=== PATIENT | female | born 1990 | race Caucasian/White ===

== ENCOUNTER 2016-06-25 15:42 | Emergency (ER) | payer MEDICARE, MEDICAID ==
[2016-06-25] MEDS ORDERED: Sodium Chloride 0.9% 1,000 ML IV ONE (16:05)
[2016-06-25] MEDS ORDERED: SUMAtriptan 6 MG/0.5 ML SDV SUBCUT ONE (16:06)
--- NOTE | 2016-06-25 16:21 | EDM.PDOC ---
ED HPI HEADACHE COMPLAINT - General Chief Complaint: Headache Stated Complaint: MIGRAINE Time Seen by Provider: 06/25/16 15:51 Source: Reports: Patient History Limitations: Reports: No limitations - History of Present Illness INITIAL COMMENTS - FREE TEXT/NARRATIVE: 26 years old w f wit h/o migraine headache came the ed due to severe headache behind both eyes. Pt was seen at [facility] today when she received phenergen, after which she broke out in a rash. Pt received prescriptions as well which she did not cloth picker. Pt feels nauseated and is photophobic as well. Pt had diarrhea as in the past 3-5 days. Poor water intake in the past few days as well. no Dizziness of lightheadedness. As per nurse pt fell onto her head before she was seen ay [facility]. No LOC. Not worst headache. PE: Photophobia, Migraine H/A, dehydrated. Anxiety Labs: CBC, BMP nl. HCG neg Impression: Migraine headache, Anxiety and Dehydration. Tx: NS, Imitrex, Benadryl, Solumedrol ( can take dexametason with benadryl), Xanax. 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: Other (see below) (Imitrex po) - Related Data Allergies/ADRs: Allergies Allergy/AdvReac Type Severity Reaction Status Date / Time methylprednisolone sodium Allergy Mild Anxiety Verified 06/25/16 16:20 succinate [From Solu-Medrol] ketorolac tromethamine Allergy Rash Verified 06/25/16 16:20 [From Toradol] phentermine Allergy Cannot Verified 06/25/16 16:20 Remember promethazine HCl Allergy Rash Verified 06/25/16 16:20 [From Phenergan] Home Meds: Home Meds Gabapentin 600 mg PO DAILY 12/30/12 [History] Gabapentin [Neurontin] 600 mg PO BEDTIME 03/14/13 [History] ALPRAZolam [Xanax] 0.5 mg PO BID PRN 12/27/15 [History] Melatonin 10 mg PO BEDTIME 12/27/15 [History] hydrOXYzine Pamoate [Hydroxyzine Pamoate] 25 mg PO Q4H PRN 12/27/15 [History] Metoclopramide [Reglan] 10 mg PO ASDIRECTED PRN #12 cup 05/14/16 [Rx] Past Medical History - Past Health History Medical/Surgical History: Denies Medical/Surgical History HEENT History: Reports: Impaired vision Respiratory History: Reports: Asthma Psychiatric History: Reports: Anxiety, Depression, Suicide attempt - Infectious Disease History Infectious Disease History: Reports: None - Past Surgical History HEENT Surgical History: Reports: Oral surgery GI Surgical History: Reports: Cholecystectomy Female Surgical History: Reports: Other (see below) Other Female Surgeries/Procedures: OVARIAN CYST REMOVAL. Social & Family History - Family History Cardiac: Reports: High cholesterol, Hypertension, Other (see below) Other Cardiac Family History: HEART DISEASE Respiratory: Reports: COPD Psychiatric: Reports: Anxiety, Depression Endocrine/Metabolic: Reports: Diabetes, type II - Tobacco Use Smoking Status *Q: Never Smoker Second Hand Smoke Exposure: No - Alcohol Use Days Per Week of Alcohol Use: 1 Number of Drinks Per Day: 1 Total Drinks Per Week: 1 - Recreational Drug Use Recreational Drug Use: No ED ROS GENERAL - Review of Systems Review Of Systems: See Below Constitutional: Reports: no symptoms HEENT: Reports: Other (dry mucosal membrane) Respiratory: Reports: no symptoms Cardiovascular: Reports: No symptoms Endocrine: Reports: no symptoms GI/Abdominal: Reports: Diarrhea, Decreased appetite : Reports: no symptoms Musculoskeletal: Reports: no symptoms Skin: Reports: no symptoms Neurological: Reports: no symptoms Psychiatric: Reports: No symptoms Hematologic/Lymphatic: Reports: no symptoms Immunologic: Reports: no symptoms - Physical Exam Exam: See Below Exam Limited By: No limitations General Appearance: alert, WD/WN, mild distress Ears: normal external exam, normal canal, hearing grossly normal, normal TMs Nose: normal inspection, normal mucosa, no blood Throat/Mouth: Other (dry mucosal membrane) Head Exam: atraumatic, normocephalic Neck: normal inspection, supple, non-tender, full range of motion Respiratory/Chest: no respiratory distress, lungs clear, normal breath sounds, no accessory muscle use, chest non-tender Cardiovascular: normal peripheral pulses, regular rate, rhythm, no edema, no gallop, no JVD, no murmur, no rub GI/Abdominal: normal bowel sounds, soft, non tender, no organomegaly, no distention, no abnormal bruit, no mass (Female) Exam: Deferred Rectal (Female) Exam: Deferred Neuro Exam (Abbreviated): alert, oriented, CN II-XII intact, normal cognition, normal gait Back Exam: normal inspection, full range of motion, NT Extremities: normal inspection, normal range of motion, non-tender, no pedal edema, normal capillary refill Psychiatric: normal affect, normal mood Skin Exam: Warm, Dry, Intact, Normal color, No rash Course - Vital Signs Text/Narrative:: 26 years old w f wit h/o migraine headache came the ed due to severe headache behind both eyes. Pt was seen at [facility] today when she received phenergen, after which she broke out in a rash. Pt feels nauseated and is photophobic as well. Pt had diarrhea as well in the past 3-5 days. Poor water intake in the past few days as well. no Dizziness of lightheadedness. As per nurse pt fell onto her head before she was seen ay [facility]. No LOC. PE: Dehydrated, photophia, nauseated Pt stated she can take Dexamethason if she gets Benadryl before Dexamethason Last Recorded V/S: Last Vital Signs Temp 36.6 C 06/25/16 15:50 Pulse 67 06/25/16 15:50 Resp 18 06/25/16 15:50 BP 133/79 06/25/16 15:50 Pulse Ox 100 06/25/16 15:50 - Orders/Labs/Meds Labs: Laboratory Tests 06/25/16 06/25/16 06/25/16 Range/Units 16:15 16:35 16:35 WBC 7.0 (4.5-12.0) X10-3/uL RBC 5.19 (3.23-5.20) x10(6)uL Hgb 14.5 (11.5-15.5) g/dL Hct 44.7 (30.0-51.3) % MCV 86.2 (80-96) fL MCH 28.0 (27.7-33.6) pg MCHC 32.5 (32.2-35.4) g/dL RDW 11.9 (11.5-15.5) % Plt Count 288 (125-369) X10(3)uL MPV 8.4 (7.4-10.4) fL Neut % (Auto) 54.9 (46-82) % Lymph % (Auto) 35.4 (13-37) % [place] % (Auto) 8.3 (4-12) % Eos % (Auto) 1 (1.0-5.0) % Baso % (Auto) 1 (0-2) % Neut # 3.8 (1.6-8.3) # Lymph # 2.5 (0.6-5.0) # [place] # 0.6 (0.0-1.3) # Eos # 0.1 (0.0-0.8) # Baso # 0.0 (0.0-0.2) # Sodium 138 (135-145) mmol/L Potassium 3.8 (3.5-5.3) mmol/L Chloride 105 (100-110) mmol/L Carbon Dioxide 23 (23-29) mmol/L BUN 12 (5-20) mg/dL Creatinine 0.7 (0.6-1.3) mg/dL Est Cr Clr Drug Dosing 134.93 mL/min Estimated GFR (MDRD) > 60 (>60) BUN/Creatinine Ratio 17.1 (9-20) Glucose 91 (80-116) mg/dL Calcium 9.5 (8.6-10.2) mg/dL Urine HCG, Qual Negative (NEGATIVE) Meds: Medications Discontinued Medications Generic Name Dose Route Start Last Admin Trade Name Freq PRN Reason Stop Dose Admin Alprazolam 0.5 mg 06/25/16 19:23 Xanax PO 06/25/16 19:24 ONETIME ONE Dihydroergotamine Mesylate 1 mg 06/25/16 17:47 06/25/16 18:06 Dhe 45 IVPUSH 06/25/16 17:48 Not Given ONETIME ONE Diphenhydramine HCl 25 mg 06/25/16 18:04 06/25/16 18:11 Benadryl IVPUSH 06/25/16 18:05 25 mg ONETIME ONE Administration Sodium Chloride 1,000 mls @ 999 mls/hr 06/25/16 16:05 06/25/16 16:43 Normal Saline IV 06/25/16 17:05 999 mls/hr .BOLUS ONE Administration Dexamethasone 10 mg/ Sodium 52.5 mls @ 100 mls/hr 06/25/16 19:03 06/25/16 19: 17 Chloride IV 06/25/16 19:32 100 mls/hr ONETIME ONE Administration Sumatriptan Succinate 6 mg 06/25/16 16:06 06/25/16 16:47 Imitrex SUBCUT 06/25/16 16:07 6 mg ONETIME ONE Administration Departure - Departure Time of Disposition: 19:34 Disposition: Home, Self-Care 01 Condition: good Clinical Impression: Migraine Qualifiers: Migraine type: with aura Status migrainosus presence: without status migrainosus Intractability: not intractable Qualified Code(s): G43.109 - Migraine with aura, not intractable, without status migrainosus Referrals: Jhonny Johns MD [Primary Care Provider] - Forms: ED Department Discharge Additional Instructions: Please cont your meds as recommended, please f/u come back to the ed if the symptoms get worse acutely
[2016-06-25] MEDS ORDERED: Dihydroergotamine 1 MG/ML SDV IVPUSH ONE (17:47)
[2016-06-25] MEDS ORDERED: diphenhydrAMINE 50 MG/ML SDV IVPUSH ONE (18:04)
[2016-06-25] MEDS ORDERED: Dexamethasone 10 MG in Sodium Chloride 0.9% 50 ML IV ONE (19:03)
[2016-06-25] MEDS ORDERED: ALPRAZolam 0.25 MG Tab PO ONE (19:23)
[2016-06-25 20:24] VITALS: BP 132/79
== END 2016-06-25 20:22 | disposition home or self-care (01) ==
LOC: FB.ED 15:42
DX: G43.109 Migraine with aura, not intractable, without status migrainosus (principal); F41.9 Anxiety disorder, unspecified; F32.9 Major depressive disorder, single episode, unspecified; Z79.899 Other long term (current) drug therapy; Z90.49 Acquired absence of other specified parts of digestive tract; Z98.890 Other specified postprocedural states; Z88.8 Allergy status to other drugs, medicaments and biological substances
CPT/HCPCS: 36415; 80048; 81025; 85025; 96361; 96365; 96372; 99283; 99284; J1100; J1200; J3030; J7040; J7050; 96375

== ENCOUNTER 2016-07-25 18:58 | Inpatient (IN) | payer MEDICARE, MEDICAID ==
[2016-07-25] MEDS ORDERED: Sodium Chloride 0.9% 1,000 ML IV ONE (19:15)
[2016-07-25 20:09] LABS: ACETAMINOPHEN 201 ug/mL (10-30)
[2016-07-25] MEDS ORDERED: Acetylcysteine 20% 200 MG/ML 30 ML SDV IV STA (20:58)
--- NOTE | 2016-07-25 20:58 | EDM.PDOC ---
ED HPI GENERAL MEDICAL PROBLEM - General Stated Complaint: OVERDOSE Time Seen by Provider: 07/25/16 18:58 Source of Information: Reports: Patient, Family History Limitations: Reports: Altered mental status, Intoxication - History of Present Illness INITIAL COMMENTS - FREE TEXT/NARRATIVE: 26 y.o.w. 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 Pt was lethargic, was responding to verbal stimuli and was following commands. BP 153/89 pulse 65. No family was present. Onset: today, sudden Onset Date: 07/25/16 Onset Time: 18:00 Duration: Hour(s):, Getting worse Location: Reports: generalized Frontal Headache Pain Score (Numeric/FACES): 2 - Related Data Allergies Allergy/AdvReac Type Severity Reaction Status Date / Time methylprednisolone sodium Allergy Mild Anxiety Verified 07/25/16 19:47 succinate [From Solu-Medrol] ketorolac tromethamine Allergy Rash Verified 07/25/16 19:47 [From Toradol] phentermine Allergy Cannot Verified 07/25/16 19:47 Remember promethazine HCl Allergy Rash Verified 07/25/16 19:47 [From Phenergan] Home Meds: Home Meds Gabapentin 600 mg PO DAILY 12/30/12 [History] Gabapentin [Neurontin] 1,200 mg PO BEDTIME 03/14/13 [History] ALPRAZolam [Xanax] 0.5 mg PO BID PRN 12/27/15 [History] Melatonin 10 mg PO BEDTIME 12/27/15 [History] hydrOXYzine Pamoate [Hydroxyzine Pamoate] 25 mg PO Q4H PRN 12/27/15 [History] Metoclopramide [Reglan] 10 mg PO ASDIRECTED PRN #12 cup 05/14/16 [Rx] .Dayquil 1 tab PO ASDIRECTED PRN 07/26/16 [History] ALPRAZolam [Alprazolam] 1 mg PO BID 07/26/16 [History] Past Medical History - Past Health History Medical/Surgical History: Denies Medical/Surgical History HEENT History: Reports: Impaired vision Respiratory History: Reports: Asthma Gastrointestinal History: Reports: Cholelithiasis Neurological History: Reports: Migraines Psychiatric History: Reports: Anxiety, Depression, Suicide attempt - Infectious Disease History Infectious Disease History: Reports: None - Past Surgical History HEENT Surgical History: Reports: Oral surgery GI Surgical History: Reports: Cholecystectomy Female Surgical History: Reports: Other (see below) Other Female Surgeries/Procedures: OVARIAN CYST REMOVAL. Social & Family History - Family History Cardiac: Reports: High cholesterol, Hypertension, Other (see below) Other Cardiac Family History: HEART DISEASE Respiratory: Reports: COPD Psychiatric: Reports: Anxiety, Depression Endocrine/Metabolic: Reports: Diabetes, type II - Tobacco Use Smoking Status *Q: Never Smoker Second Hand Smoke Exposure: No - Caffeine Use Caffeine Use: Reports: Tea - Alcohol Use Days Per Week of Alcohol Use: 1 Number of Drinks Per Day: 1 Total Drinks Per Week: 1 - Recreational Drug Use Recreational Drug Use: No ED ROS GENERAL - Review of Systems Review Of Systems: Unable To Obtain ED EXAM, GENERAL - Physical Exam Exam: See Below Exam Limited By: Altered mental status General Appearance: lethargic Eye Exam: bilateral eye: normal inspection Ears: normal external exam, normal canal Ear Exam: bilateral ear: auricle normal Nose: normal inspection, normal mucosa, no blood Throat/Mouth: Normal inspection, Normal lips, Normal teeth, Normal gums, Normal oropharynx, Normal voice Head: atraumatic, normocephalic Neck: normal inspection, supple, non-tender, full range of motion Respiratory/Chest: no respiratory distress, lungs clear, decreased breath sounds Cardiovascular: normal peripheral pulses, regular rate, rhythm, no edema, no gallop GI/Abdominal: normal bowel sounds, soft, non tender, no organomegaly, no distention, no abnormal bruit, no mass (Female) Exam: Deferred Rectal (Female) Exam: Deferred Back Exam: normal inspection, full range of motion Extremities: normal inspection Neurological: inattentive Psychiatric: flat affect Skin Exam: Warm, Dry, Intact, Normal color, No rash EKG INTERPRETATION EKG Date: 07/26/16 Time: 00:20 Rhythm: NSR Rate (beats/min): 65 [place]: normal P-wave: present QRS: normal ST-T: normal QT: normal Comparison: NA - no prior EKG EKG Interpretation Comments: short NC Course - Vital Signs Text/Narrative:: 26 y.o.w. 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 Pt was lethargic, was responding to verbal stimuli and was following commands. BP 153/89 pulse 65. RR 15. No family was present. Pt stated she took the drugs because her SO made her feel bad and she wants to get out "of the way" PE: lethargic 26 y.o.w.f Denied suicidal attempt at one time. BP 105/78 after 1 liter of NS Labs: UDS pos for Benzos and acetaminophen (201), WBC 13k, Na 134 K 3.8 Cr 0.6 BUN 21 Impression: Acetaminophen overdose, Bezos abuse, Dehydration, suicidal ideation Consultation: Poison Control: 1) Acetadote 20% i.v. 150mg/kg over 1 hour 2) Acetadote 20% i.v. 50mg/kg over 4 hours 3) Acetadote 20% i.v. 100mg /kg over 16 hours 4) then check LFTs Tx: First dose of Acetadote was started at about 10.30 pm here in the ed. Plan: Admit pt to ICU Vitals on transfer to the ICU: BP 99/56 puls 78 rr 15 Last Recorded V/S: Last Vital Signs Temp 36.6 C 07/26/16 04:50 Pulse 60 07/26/16 06:45 Resp 13 07/26/16 06:45 BP 117/84 07/26/16 06:45 Pulse Ox 97 07/26/16 06:45 - Orders/Labs/Meds Labs: Laboratory Tests 07/25/16 07/25/16 07/25/16 Range/Units 19:30 19:30 19:30 WBC 13.9 H (4.5-12.0) X10-3/uL RBC 5.54 H (3.23-5.20) x10(6)uL Hgb 16.0 H (11.5-15.5) g/dL Hct 47.9 (30.0-51.3) % MCV 86.5 (80-96) fL MCH 28.8 (27.7-33.6) pg MCHC 33.3 (32.2-35.4) g/dL RDW 12.4 (11.5-15.5) % Plt Count 434 H (125-369) X10(3)uL MPV 7.7 (7.4-10.4) fL Neut % (Auto) 60.8 (46-82) % Lymph % (Auto) 29.8 (13-37) % [place] % (Auto) 8.1 (4-12) % Eos % (Auto) 1 (1.0-5.0) % Baso % (Auto) 0 (0-2) % Neut # (Auto) 8.6 H (1.6-8.3) # Lymph # (Auto) 4.1 (0.6-5.0) # [place] # (Auto) 1.1 (0.0-1.3) # Eos # (Auto) 0.1 (0.0-0.8) # Baso # (Auto) 0.0 (0.0-0.2) # PT 10.4 (8.7-11.1) INR 1.03 (0.89-1.13) Sodium 134 L (135-145) mmol/L Potassium 3.8 (3.5-5.3) mmol/L Chloride 105 (100-110) mmol/L Carbon Dioxide 21 L (23-29) mmol/L BUN 21 H (5-20) mg/dL Creatinine 0.6 (0.6-1.3) mg/dL Est Cr Clr Drug Dosing 152.30 mL/min Estimated GFR (MDRD) > 60 (>60) BUN/Creatinine Ratio 35.0 H (9-20) Glucose 124 H (80-116) mg/dL Calcium 9.1 (8.6-10.2) mg/dL HCG, Quant (2.0 - ) mIU/mL Salicylates < 4.0 L (5.0-25.0) mg/dL Urine Opiates Screen (NEGATIVE) Ur Oxycodone Screen (NEGATIVE) Ur Propoxyphene Screen (NEGATIVE) Acetaminophen 201 H* (10-30) ug/mL Ur Barbituates Screen (NEGATIVE) Ur Tricyclics Screen (NEGATIVE) Ur Phencyclidine Scrn (NEGATIVE) Ur Amphetamine Screen (NEGATIVE) Urine MDMA Screen (NEGATIVE) U Benzodiazepines Scrn (NEGATIVE) U Cocaine Metab Screen (NEGATIVE) U Marijuana (THC) Screen (NEGATIVE) Ethyl Alcohol (<0.01) % 07/25/16 07/25/16 07/25/16 Range/Units 19:30 19:30 19:50 WBC (4.5-12.0) X10-3/uL RBC (3.23-5.20) x10(6)uL Hgb (11.5-15.5) g/dL Hct (30.0-51.3) % MCV (80-96) fL MCH (27.7-33.6) pg MCHC (32.2-35.4) g/dL RDW (11.5-15.5) % Plt Count (125-369) X10(3)uL MPV (7.4-10.4) fL Neut % (Auto) (46-82) % Lymph % (Auto) (13-37) % [place] % (Auto) (4-12) % Eos % (Auto) (1.0-5.0) % Baso % (Auto) (0-2) % Neut # (Auto) (1.6-8.3) # Lymph # (Auto) (0.6-5.0) # [place] # (Auto) (0.0-1.3) # Eos # (Auto) (0.0-0.8) # Baso # (Auto) (0.0-0.2) # PT (8.7-11.1) INR (0.89-1.13) Sodium (135-145) mmol/L Potassium (3.5-5.3) mmol/L Chloride (100-110) mmol/L Carbon Dioxide (23-29) mmol/L BUN (5-20) mg/dL Creatinine (0.6-1.3) mg/dL Est Cr Clr Drug Dosing mL/min Estimated GFR (MDRD) (>60) BUN/Creatinine Ratio (9-20) Glucose (80-116) mg/dL Calcium (8.6-10.2) mg/dL HCG, Quant < 2 L (2.0 - ) mIU/mL Salicylates (5.0-25.0) mg/dL Urine Opiates Screen Negative (NEGATIVE) Ur Oxycodone Screen Negative (NEGATIVE) Ur Propoxyphene Screen Negative (NEGATIVE) Acetaminophen (10-30) ug/mL Ur Barbituates Screen Negative (NEGATIVE) Ur Tricyclics Screen Negative (NEGATIVE) Ur Phencyclidine Scrn Negative (NEGATIVE) Ur Amphetamine Screen Negative (NEGATIVE) Urine MDMA Screen Negative (NEGATIVE) U Benzodiazepines Scrn Positive H (NEGATIVE) U Cocaine Metab Screen Negative (NEGATIVE) U Marijuana (THC) Screen Negative (NEGATIVE) Ethyl Alcohol < 0.01 (<0.01) % Meds: Medications Discontinued Medications Generic Name Dose Route Start Last Admin Trade Name Freq PRN Reason Stop Dose Admin Acetylcysteine 14,000 mg 07/25/16 20:58 07/25/16 22:21 Acetadote 20% IV 07/25/16 20:59 14,000 mg ONETIME STA Administration Sodium Chloride 1,000 mls @ 999 mls/hr 07/25/16 19:15 07/25/16 19:48 Normal Saline IV 07/25/16 20:15 999 mls/hr .BOLUS ONE Administration Sodium Chloride 1,000 mls @ 999 mls/hr 07/25/16 21:00 07/25/16 20:52 Normal Saline IV 999 mls/hr ASDIRECTED BRE Administration Acetylcysteine 4,700 mg/ 523.5 mls @ 130.875 mls/hr 07/25/16 23:00 07/26/16 00:12 Dextrose/Water IV 130.875 mls/hr .CONTINUOUS BRE Administration Sodium Chloride 1,000 mls @ 0 mls/hr 07/25/16 22:15 07/25/16 22:20 Normal Saline IV 07/30/16 02:05 30 mls/hr ASDIRECTED BRE Administration KVO Acetylcysteine 9,400 mg/ 1,000 mls @ 62.5 mls/hr 07/26/16 06:15 Dextrose/Water IV 07/26/16 22:30 ASDIRECTED BRE As Directed Acetylcysteine 4,700 mg/ 500.5 mls @ 62.563 mls/hr 07/26/16 07:00 07/26/16 07 :52 Dextrose/Water IV 07/26/16 22:59 Not Given Q8H BRE Sodium Chloride 10 ml 07/25/16 22:03 Saline Flush FLUSH ASDIRECTED PRN Keep Vein Open Departure - Departure Time of Disposition: 11:22 Disposition: Admitted As Inpatient 65 Condition: fair Clinical Impression: Acetaminophen overdose Qualifiers: Encounter type: initial encounter Injury intent: intentional self-harm Qualified Code(s): T39.1X2A - Poisoning by 4-Aminophenol derivatives, intentional self-harm, initial encounter
[2016-07-25] MEDS ORDERED: Sodium Chloride 0.9% 1,000 ML IV SCH ×2 (21:00→22:15)
[2016-07-25] MEDS ORDERED: Sodium Chloride 0.9% 10 ML Syringe FLUSH PRN (22:03)
[2016-07-25] MEDS ORDERED: WATER IV SCH ×2 (23:00)
[2016-07-25] MEDS ORDERED: ACETYLCYSTEINE IV SCH ×2 (23:00)
[2016-07-25] MEDS ORDERED: Acetylcysteine 20% 200 MG/ML 30 ML SDV IV ONE (23:00)
[2016-07-25] MEDS ORDERED: DEXTROSE 5% IV SCH ×2 (23:00)
[2016-07-26] MEDS ORDERED: Acetylcysteine 20% 200 MG/ML 30 ML SDV IV ONE (05:54)
[2016-07-26] MEDS ORDERED: WATER IV SCH ×2 (06:15)
[2016-07-26] MEDS ORDERED: ACETYLCYSTEINE IV SCH ×2 (06:15)
[2016-07-26] MEDS ORDERED: DEXTROSE 10% IV SCH ×2 (06:15)
[2016-07-26] MEDS: WATER IV SCH ×4 (06:33→07:52)
[2016-07-26] MEDS: ACETYLCYSTEINE IV SCH ×4 (06:33→07:52)
[2016-07-26] MEDS: DEXTROSE 5% IV SCH ×4 (06:33→07:52)
[2016-07-26 07:22] VITALS: BP 117/84
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
--- NOTE | 2016-07-26 09:48 | PCM.SN ---
- Free Text/Narrative Note: Patient woke up and took a variety. Refuses IV or by mouth acetylcysteine. Discussed the possible repercussions with hepatic failure. Patient states she does not trusting [facility] because she is at things or rales there that they said were in her head. And wants to be transferred to [place]. Discussed care with Dr. Gibson the hospitalist. He accepted transfer to the ER for initial evaluation and then I would take over.
--- NOTE | 2016-07-26 09:52 | PCM.DCSUM1 ---
Discharge Summary - Hospital Course Free Text/Narrative:: Hospital course-patient is very groggy and received the first part of the acetylcysteine per protocol IV. In the a.m. the patient woke up and took over IV. She refused treatment both oral and by mouth acetyl cystine. She states she doesn't care and does not want any treatment. She later stated that she would receive treatment and [place] she requested to be transferred. Her initial Tylenol level is 201. LFTs were not checked on admission. I discussed care of the hospital settlements going on. Because is no LFTs were ABGs he was patient evaluated in the ER. He felt imperative this patient be transferred to make sure she doesn't go into liver failure. Patient will be transferred by ambulance because of OD, possible suicidal ideation, refusing treatment is necessary for preserving her liver. Brief History: This is a 26-year-old female patient with history of multiple overdoses. She was seen in ER last night after taking 16-17 Xanax 1 mg, 45 600 mg gabapentin, and 24 DayQuil. Her son that the level is high and poison control was called and she was admitted put on IV acetylcysteine protocol. This morning the patient does talk but answers questions slowly and is a bit uncooperative. She states she'll some money, but with a boyfriend and therefore took the pill so she didn't have to feel anything. She denies being suicidal. She does feel depressed, anxious, poor concentration, poor memory and sleeping a lot. This recently. She did have a psychiatrist at [facility] to receive a retired purchasing the psychologist Alec. She states she feels dizzy and some blurred vision currently. - Discharge Data Discharge Date: 07/26/16 Discharge Disposition: DC/Tfer to Acute Hospital 02 Condition: Fair - Discharge Diagnosis/Problem(s) (1) Gabapentin overdose SNOMED Code(s): 261529075 ICD Code: T42.6X1A - POISONING BY OTH ANTIEPLPTC AND SED-HYPNTC DRUGS, ACC, INIT Status: Acute Current Visit: Yes (2) Overdose of benzodiazepine SNOMED Code(s): 379840402 ICD Code: T42.4X1A - POISONING BY BENZODIAZEPINES, ACCIDENTAL, INIT Status : Acute Current Visit: Yes (3) Borderline personality disorder in adult SNOMED Code(s): 11823514 ICD Code: F60.3 - BORDERLINE PERSONALITY DISORDER Status: Acute Current Visit: No (4) Depression SNOMED Code(s): 74492808 ICD Code: F32.9 - MAJOR DEPRESSIVE DISORDER, SINGLE EPISODE, UNSPECIFIED Status: Acute Current Visit: No Qualifiers: Depression Type: major depressive disorder Major depression recurrence: recurrent Active/Remission status: currently active Major depression episode severity: moderate Qualified Code(s): F33.1 - Major depressive disorder, recurrent, moderate (5) Overdose by acetaminophen SNOMED Code(s): 340175113 ICD Code: T39.1X1A - POISONING BY 4-AMINOPHENOL DERIVATIVES, ACCIDENTAL, INIT Status: Acute Current Visit: No Qualifiers: Encounter type: initial encounter Injury intent: intentional self-harm Qualified Code(s): T39.1X2A - Poisoning by 4-Aminophenol derivatives, intentional self-harm, initial encounter (6) Anxiety SNOMED Code(s): 38975707 ICD Code: F41.9 - ANXIETY DISORDER, UNSPECIFIED Status: Chronic Priority : Medium Current Visit: No (7) Overdose of common cold drug SNOMED Code(s): 1280519 ICD Code: T48.5X1A - POISONING BY OTH [id number] DRUGS, ACCIDENTAL, INIT Status: Resolved Priority: Medium Current Visit: No Qualifiers: Encounter type: initial encounter Injury intent: intentional self-harm Qualified Code(s): T48.5X2A - Poisoning by other [id number] drugs, intentional self-harm, initial encounter - Patient Instructions Diet: NPO Activity: As Tolerated Driving: Do Not Drive Showering/Bathing: May Shower Other/Special Instructions: 1. Transferred to [facility] per [facility] ambulance. 2. Hold all medications. - Discharge Plan Home Medications: Home Meds Gabapentin 600 mg PO DAILY 12/30/12 [History] Gabapentin [Neurontin] 1,200 mg PO BEDTIME 03/14/13 [History] ALPRAZolam [Xanax] 0.5 mg PO BID PRN 12/27/15 [History] Melatonin 10 mg PO BEDTIME 12/27/15 [History] hydrOXYzine Pamoate [Hydroxyzine Pamoate] 25 mg PO Q4H PRN 12/27/15 [History] Metoclopramide [Reglan] 10 mg PO ASDIRECTED PRN #12 cup 05/14/16 [Rx] .Dayquil 1 tab PO ASDIRECTED PRN 07/26/16 [History] ALPRAZolam [Alprazolam] 1 mg PO BID 07/26/16 [History] - Discharge Summary/Plan Comment DC Time >30 min.: No - Patient Data Vitals - Most Recent: Last Vital Signs Temp 97.8 F 07/26/16 04:50 Pulse 60 07/26/16 06:45 Resp 13 07/26/16 06:45 BP 117/84 07/26/16 06:45 Pulse Ox 97 07/26/16 06:45 Weight - Most Recent: 204 lb 3.2 oz I&O - Last 24 hours: Intake & Output 07/25/16 07/26/16 07/26/16 22:59 06:59 14:59 Intake Total 2553 Output Total 0 800 Balance 2553 -800 Lab Results - Last 24 hrs: Laboratory Results - last 24 hr 07/26/16 07/26/16 Range/Units 08:40 08:40 Sodium 137 (135-145) mmol/L Potassium 4.1 (3.5-5.3) mmol/L Chloride 107 (100-110) mmol/L Carbon Dioxide 23 (23-29) mmol/L BUN 14 (5-20) mg/dL Creatinine 0.7 (0.6-1.3) mg/dL Est Cr Clr Drug Dosing 130.54 mL/min Estimated GFR (MDRD) > 60 (>60) BUN/Creatinine Ratio 20.0 (9-20) Glucose 92 (80-116) mg/dL Calcium 8.6 (8.6-10.2) mg/dL Total Bilirubin 0.7 (0.1-1.3) mg/dL AST 23 (5-27) IU/L ALT 26 D (14-26) IU/L Alkaline Phosphatase 70 (56-112) IU/L Total Protein 6.9 (6.0-8.0) g/dL Albumin 3.7 (3.5-5.2) g/dL Globulin 3.2 g/dL Albumin/Globulin Ratio 1.2 Acetaminophen 16 (10-30) ug/mL Med Orders - Current: Current Medications Sodium Chloride (Normal Saline) 1,000 mls @ 999 mls/hr IV ASDIRECTED BRE Last Admin: 07/25/16 20:52 Dose: 999 mls/hr Acetylcysteine 4,700 mg/ (Dextrose/Water) 523.5 mls @ 130.875 mls/hr IV .CONTINUOUS BRE Last Admin: 07/26/16 00:12 Dose: 130.875 mls/hr Sodium Chloride (Normal Saline) 1,000 mls @ 0 mls/hr IV ASDIRECTED BRE PRN Reason: KVO Stop: 07/30/16 02:05 Last Admin: 07/25/16 22:20 Dose: 30 mls/hr Acetylcysteine 4,700 mg/ (Dextrose/Water) 500.5 mls @ 62.563 mls/hr IV Q8H BRE Stop: 07/26/16 22:59 Last Admin: 07/26/16 07:52 Dose: Not Given Sodium Chloride (Saline Flush) 10 ml FLUSH ASDIRECTED PRN PRN Reason: Keep Vein Open Discontinued Medications Acetylcysteine (Acetadote 20%) 14,000 mg IV ONETIME STA Stop: 07/25/16 20:59 Last Admin: 07/25/16 22:21 Dose: 14,000 mg Sodium Chloride (Normal Saline) 1,000 mls @ 999 mls/hr IV .BOLUS ONE Stop: 07/25/16 20:15 Last Admin: 07/25/16 19:48 Dose: 999 mls/hr Acetylcysteine 9,400 mg/ (Dextrose/Water) 1,000 mls @ 62.5 mls/hr IV ASDIRECTED BRE PRN Reason: As Directed Stop: 07/26/16 22:30 *Q Meaningful Use (DIS) - VTE *Q VTE Criteria *Q: - Stroke *Q Stroke Criteria *Q: - AMI *Q AMI Criteria *Q:
== END 2016-07-26 10:08 | DRG 918 ==
LOC: FB.ED 18:58 → FB.ICU 22:04
PROVIDERS: ADMIT Family Medicine; ATTEND Family Medicine
DX: T42.4X2A Poisoning by benzodiazepines, intentional self-harm, initial encounter (principal); R45.851 Suicidal ideations; F33.1 Major depressive disorder, recurrent, moderate; T42.6X2A Poisoning by other antiepileptic and sedative-hypnotic drugs, intentional self-harm, initial encounter; Y92.9 Unspecified place or not applicable; T48.5X2A Poisoning by other anti-common-cold drugs, intentional self-harm, initial encounter; T39.1X2A Poisoning by 4-Aminophenol derivatives, intentional self-harm, initial encounter; E86.0 Dehydration; F19.10 Other psychoactive substance abuse, uncomplicated; F60.3 Borderline personality disorder; F41.9 Anxiety disorder, unspecified; R41.82 Altered mental status, unspecified; Z91.5 Personal history of self-harm; H54.7 Unspecified visual loss; Z88.8 Allergy status to other drugs, medicaments and biological substances; Z53.29 Procedure and treatment not carried out because of patient's decision for other reasons
CPT/HCPCS: 36415; 80048; 80305; 84702; 85025; 85610; 96361; 99284; G0480 ×3; J7040 ×2; 80053; 93005; 96360; 96374; 99285

== ENCOUNTER 2016-12-12 12:08 | Emergency (ER) | payer MEDICARE, MEDICAID ==
[2016-12-12] MEDS ORDERED: Sodium Chloride 0.9% 1,000 ML IV SCH (12:45)
[2016-12-12] MEDS ORDERED: Metoclopramide 10 MG/2 ML SDV IVPUSH ONE (12:46)
[2016-12-12] MEDS ORDERED: diphenhydrAMINE 50 MG/ML SDV IVPUSH ONE (12:46)
[2016-12-12] MEDS ORDERED: SUMAtriptan 6 MG/0.5 ML SDV SUBCUT ONE (14:32)
[2016-12-12 17:18] VITALS: BP 130/73
--- NOTE | 2016-12-13 06:32 | ER ---
DATE SEEN: 12/12/2016 HISTORY OF PRESENT ILLNESS: Miya is a 26-year-old who is known to have history of suicidal ideation with suicide attempts on multiple occasions in the past. She overdosed on antidepressants, falls, lund, scalp injuries, lacerations, overdose by acetaminophen and other cold drugs. Also, borderline personality, depression, seizures, syncope. She presents this evening with onset of migraines. It had been several hours of migraines. It is 8/10. She denies compromise in vision. She has a mild photosensitivity and phono sensitivity. Denies paresis, weakness, numbness, scotoma, teichopsia, aura, or fortification syndrome vision. She denies loss of consciousness, chest pain, irregular heartbeat, neck pain, jaw pain, tooth pain, sinus discomfort, recent infection, fever, neck stiffness, abdominal discomfort, gastrointestinal symptoms, nausea, vomiting, diarrhea, constipation, blood in the stool, black tarry stool. She is not menstruating currently. No frequency, urgency, or dysuria, and no muscle weakness or muscle aches or joint aches. CURRENT ALLERGIES: Extensive. Methylprednisolone anxiety, Toradol rash, phentermine cannot remember, promethazine rash. MEDICATIONS: 1. Metformin 500 mg b.i.d. 2. Seroquel 200 mg daily. 3. Prozac 20 mg daily. 4. Hydroxyzine p.r.n. REVIEW OF SYSTEMS: Negative. HEENT, denies compromise in vision, difficulty swallowing, shortness of breath, chest pain, irregular heartbeat, abdominal discomfort, nausea, vomiting, and denies pelvic pain. Denies pain in muscles, joints, aches. No history of fibromyalgia symptoms. PHYSICAL EXAMINATION: VITAL SIGNS: Blood pressure 133/79, heart rate 78, respirations 16, oxygen saturation 100%, temperature is 36.6 degrees centigrade. GENERAL: The patient is quiet, soft spoken, slightly overweight. HEENT: PERRLA intact. Eyegrounds normal. No nystagmus. EOMs normal. Hearing is good. TMs normal appearance. NECK: Supple. No thyromegaly. No masses in neck. No cervical adenopathy. No bruits. LUNGS: Clear to auscultation without rales, rhonchi, or wheezes. HEART: S1 and S2. No irregularity of rhythm. No murmur. ABDOMEN: Soft. No guarding. No abdominal discomfort. NEURO: Deep tendon reflexes upper and lower extremities hypoactive, but present. Cranial nerves II through XII intact. Oriented x3. Gait intact. Romberg negative. No past pointing. No pronator drift. No tremor. Muscle strength is good. Joint is negative. ASSESSMENT: Migraine. PLAN: 1000 mL normal saline flush plus Reglan flush. She is allergic to Toradol and Decadron. Consequently, did not give those. However, once this was completed, her headache went down to a 6. Thus, I felt I was not going to use narcotics because of narcotic breakthrough and consequently the patient was given a shot of Imitrex 6 mg subcu and dismissed. She used to have headaches. Because of her previous history of borderline personality and also suicidal ideation, I chose not to provide her with any narcotics or other headache medications, she has a migraine pill. Further followup of her migraines by a doctor in a week, earlier if worse. TIME SEEN: The patient was seen at 1300. /[id number] TRENA/TITO
== END 2016-12-12 15:00 | disposition home or self-care (01) ==
LOC: FB.ED 12:08
DX: G43.909 Migraine, unspecified, not intractable, without status migrainosus (principal); Z79.84 Long term (current) use of oral hypoglycemic drugs; Z79.899 Other long term (current) drug therapy
CPT/HCPCS: 80305; 96361; 96372; 96374; 96375; 99283; J1200; J2360; J2765; J3030; J7040

== ENCOUNTER 2016-12-18 17:29 | Emergency (ER) | payer MEDICARE, MEDICAID ==
[2016-12-18] MEDS ORDERED: Ondansetron 8 MG Tab.DIS PO ONE (18:06)
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
[2016-12-18] MEDS ORDERED: Sodium Chloride 0.9% 1,000 ML IV ONE ×2 (18:20→20:07)
[2016-12-18 19:34] LABS: ACETAMINOPHEN < 10 ug/mL (10-30)
[2016-12-18] MEDS ORDERED: Magnesium Sulfate/Water 2 GM in Premix Bag 1 BAG IV ONE (22:02)
[2016-12-19 00:06] VITALS: BP 122/63
== END 2016-12-19 00:17 | disposition home or self-care (01) ==
LOC: FB.ED 17:29
DX: T43.591A Poisoning by other antipsychotics and neuroleptics, accidental (unintentional), initial encounter (principal); F41.9 Anxiety disorder, unspecified; E86.0 Dehydration; G43.909 Migraine, unspecified, not intractable, without status migrainosus; J45.909 Unspecified asthma, uncomplicated; F32.9 Major depressive disorder, single episode, unspecified; Z88.8 Allergy status to other drugs, medicaments and biological substances; Z88.6 Allergy status to analgesic agent; Z79.899 Other long term (current) drug therapy; Z79.51 Long term (current) use of inhaled steroids
CPT/HCPCS: 36415; 80048; 80076; 80305; 81025; 82150; 83735; 84443; 85025; 93005; 96361; 96365; 99283; A9270; G0480; J3475; J7040; 99284

== ENCOUNTER 2017-04-17 20:40 | Emergency (ER) | payer MEDICARE, MEDICAID ==
[2017-04-17 21:24] VITALS: BP 130/84
[2017-04-17] MEDS ORDERED: traMADol 50 MG Tab PO ONE (21:27)
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
== END 2017-04-17 21:45 | disposition home or self-care (01) ==
LOC: FB.ED 20:40
DX: M72.2 Plantar fascial fibromatosis (principal); Z88.8 Allergy status to other drugs, medicaments and biological substances; Z88.6 Allergy status to analgesic agent; F32.9 Major depressive disorder, single episode, unspecified; F41.9 Anxiety disorder, unspecified
CPT/HCPCS: 99282; A9270

== ENCOUNTER 2017-06-12 13:08 | Emergency (ER) | payer MEDICAID, MEDICARE ==
[2017-06-12 15:16] LABS: ACETAMINOPHEN < 2 ug/mL (10-30)
[2017-06-12] MEDS ORDERED: Ketorolac 60 MG/2 ML SDV IM ONE (15:34)
[2017-06-12] MEDS ORDERED: Ondansetron 4 MG Tab.DIS PO ONE (16:06)
[2017-06-12] MEDS ORDERED: Acetaminophen 500 MG Tab PO ONE (17:33)
[2017-06-12] MEDS ORDERED: Metoclopramide 10 MG Tab PO ONE (17:36)
[2017-06-12] MEDS ORDERED: diphenhydrAMINE 50 MG Cap PO ONE (17:37)
[2017-06-12 18:36] VITALS: BP 133/80
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
== END 2017-06-12 18:28 ==
LOC: FB.ED 13:08
DX: F32.9 Major depressive disorder, single episode, unspecified (principal); F34.1 Dysthymic disorder; R45.851 Suicidal ideations; Z88.8 Allergy status to other drugs, medicaments and biological substances; Z79.899 Other long term (current) drug therapy; Z88.1 Allergy status to other antibiotic agents
CPT/HCPCS: 36415; 80053; 80305; 81025; 84443; 85025; 93005; 96372; 99285; A9270; G0480; J1885

== ENCOUNTER 2018-05-17 14:05 | Emergency (ER) | payer BC ==
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
[2018-05-17 14:47] LABS: ACETAMINOPHEN 37 ug/mL (10-30)
[2018-05-17] MEDS ORDERED: Sodium Chloride 0.9% 1,000 ML IV ONE (15:48)
[2018-05-17] MEDS ORDERED: Ondansetron 4 MG/2 ML SDV IVPUSH ONE (16:06)
[2018-05-17 16:48] VITALS: BP 117/76
[2018-05-17] MEDS ORDERED: Metoclopramide 10 MG/2 ML SDV IVPUSH ONE (18:54)
[2018-05-17] MEDS ORDERED: Ketorolac 30 MG/ML SDV IVPUSH ONE (20:05)
== END 2018-05-17 23:59 | disposition home or self-care (01) ==
LOC: FB.ED 14:05
DX: F33.1 Major depressive disorder, recurrent, moderate (principal); Z88.8 Allergy status to other drugs, medicaments and biological substances; Z79.899 Other long term (current) drug therapy
CPT/HCPCS: 36415; 80048; 80076; 80305-QW; 81001; 81025; 84443; 85025; 93005; 96361; 96374; 96375; 99285; G0480; J1885; J2405; J2765; J7030

== ENCOUNTER 2018-06-29 20:36 | Emergency (ER) | payer BC, MEDICARE ==
[2018-06-29] MEDS ORDERED: Ketorolac 60 MG/2 ML SDV IM ONE (20:44)
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
[2018-06-29] MEDS ORDERED: Acetaminophen/HYDROcodone 325-5 MG Tab PO STA (21:16)
[2018-06-29 21:52] VITALS: BP 132/79
== END 2018-06-29 21:29 | disposition home or self-care (01) ==
LOC: FB.ED 20:36
DX: M54.5 Low back pain (principal); E66.9 Obesity, unspecified; Z98.890 Other specified postprocedural states; Z90.49 Acquired absence of other specified parts of digestive tract; Z88.8 Allergy status to other drugs, medicaments and biological substances
CPT/HCPCS: 81001; 96372; 99283; A9270-GY; J1885

== ENCOUNTER 2018-09-13 20:30 | Emergency (ER) | payer OTHER, MEDICARE ==
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
[2018-09-13 21:05] VITALS: BP 128/92
== END 2018-09-13 21:55 | disposition home or self-care (01) ==
LOC: FB.ED 20:30
DX: S83.91XA Sprain of unspecified site of right knee, initial encounter (principal); Z88.8 Allergy status to other drugs, medicaments and biological substances; W18.40XA Slipping, tripping and stumbling without falling, unspecified, initial encounter
CPT/HCPCS: 73610-RT; 99282; 99283-25

== ENCOUNTER 2018-11-09 18:27 | Emergency (ER) | payer MEDICARE ==
[2018-11-09] MEDS ORDERED: Ondansetron 4 MG/2 ML SDV IVPUSH ONE (18:56)
[2018-11-09] MEDS ORDERED: Sodium Chloride 0.9% 10 ML Syringe FLUSH PRN (18:56)
[2018-11-09] MEDS ORDERED: Ketorolac 30 MG/ML SDV IVPUSH ONE ×2 (18:56→20:23)
[2018-11-09 18:59] VITALS: BP 148/86; PULSE 91
[2018-11-09] MEDS ORDERED: Sodium Chloride 0.9% 1,000 ML IV SCH (19:00)
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
== END 2018-11-09 21:11 | disposition home or self-care (01) ==
LOC: FB.ED 18:27
DX: R10.30 Lower abdominal pain, unspecified (principal); F41.9 Anxiety disorder, unspecified; F32.9 Major depressive disorder, single episode, unspecified; Z88.8 Allergy status to other drugs, medicaments and biological substances; Z79.899 Other long term (current) drug therapy; Z87.442 Personal history of urinary calculi
CPT/HCPCS: 36415; 51701; 80053; 81001; 85025; 85651; 86140; 96361; 96374; 96375; 96376; 99284; J1885; J2405; J7030

== ENCOUNTER 2018-12-05 21:31 | Emergency (ER) | payer BC, MEDICARE ==
[2018-12-05 21:39] VITALS: BP 137/80; PULSE 98
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
[2018-12-05] MEDS ORDERED: Ketorolac 60 MG/2 ML SDV IM ONE (21:49)
== END 2018-12-05 22:05 | disposition home or self-care (01) ==
LOC: FB.ED 21:31
DX: M54.6 Pain in thoracic spine (principal); F41.9 Anxiety disorder, unspecified; E66.9 Obesity, unspecified; Z68.33 Body mass index [BMI] 33.0-33.9, adult; Z90.49 Acquired absence of other specified parts of digestive tract; Z90.6 Acquired absence of other parts of urinary tract; Z79.899 Other long term (current) drug therapy; Z88.8 Allergy status to other drugs, medicaments and biological substances
CPT/HCPCS: 96372; 99282; J1885; J2360

== ENCOUNTER 2018-12-17 15:43 | Emergency (ER) | payer BC, MEDICARE ==
[2018-12-17] MEDS ORDERED: Ketorolac 30 MG/ML SDV IVPUSH ONE (16:14)
[2018-12-17] MEDS ORDERED: Sodium Chloride 0.9% 10 ML Syringe FLUSH PRN (16:14)
[2018-12-17] MEDS ORDERED: diphenhydrAMINE 50 MG/ML SDV IVPUSH ONE ×2 (16:14→19:19)
[2018-12-17] MEDS ORDERED: Ondansetron 4 MG/2 ML SDV IVPUSH ONE (16:15)
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
[2018-12-17] MEDS ORDERED: Sodium Chloride 0.9% 1,000 ML IV ONE (17:39)
[2018-12-17] MEDS ORDERED: Prochlorperazine 10 MG/2 ML SDV IVPUSH ONE (18:13)
[2018-12-17] MEDS ORDERED: HYDROmorphone 2 MG/ML SDV IVPUSH ONE (18:52)
[2018-12-17 21:15] VITALS: BP 138/91
== END 2018-12-17 19:32 | disposition home or self-care (01) ==
LOC: FB.ED 15:43
DX: G43.909 Migraine, unspecified, not intractable, without status migrainosus (principal); K21.9 Gastro-esophageal reflux disease without esophagitis; M19.90 Unspecified osteoarthritis, unspecified site; E66.9 Obesity, unspecified; Z98.890 Other specified postprocedural states; Z90.49 Acquired absence of other specified parts of digestive tract; Z88.8 Allergy status to other drugs, medicaments and biological substances
CPT/HCPCS: 96361; 96374; 96375; 96376; 99283; J0780; J1170; J1200; J1885; J2405; J7030

== ENCOUNTER 2018-12-26 00:12 | Emergency (ER) | payer BC, MEDICARE ==
[2018-12-26] MEDS ORDERED: diphenhydrAMINE 50 MG/ML SDV IM ONE (02:06)
[2018-12-26] MEDS ORDERED: Ketorolac 30 MG/ML SDV IM ONE (02:06)
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
[2018-12-26] MEDS ORDERED: Prochlorperazine 10 MG/2 ML SDV IM ONE (02:07)
[2018-12-26] MEDS ORDERED: LORazepam 2 MG/ML SDV IM ONE (03:23)
[2018-12-26] MEDS ORDERED: Haloperidol Lactate 5 MG/ML SDV IM ONE (03:23)
[2018-12-26 04:54] VITALS: BP 127/65
== END 2018-12-26 04:35 | disposition home or self-care (01) ==
LOC: FB.ED 00:12
DX: G43.109 Migraine with aura, not intractable, without status migrainosus (principal); F41.0 Panic disorder [episodic paroxysmal anxiety]; F32.9 Major depressive disorder, single episode, unspecified; E66.9 Obesity, unspecified; Z68.32 Body mass index [BMI] 32.0-32.9, adult; Z88.8 Allergy status to other drugs, medicaments and biological substances; Z79.899 Other long term (current) drug therapy
CPT/HCPCS: 70450; 96372; 99284; J0780; J1200; J1630; J1885; J2060

== ENCOUNTER 2018-12-29 07:16 | Day surgery (SDC) | payer BC, MEDICARE ==
[2018-12-29] MEDS ORDERED: Midazolam 1 MG/ML 2 ML SDV IV ONE (07:17)
[2018-12-29] MEDS ORDERED: Propofol 200 MG/20 ML SDV IV ONE (07:17)
[2018-12-29] MEDS ORDERED: Lactated Ringers 1,000 ML IV SCH (07:30)
[2018-12-29] MEDS ORDERED: Sodium Chloride 0.9% 10 ML Syringe FLUSH PRN (07:30)
--- NOTE | 2018-12-29 09:05 | PCM.OPNOTE ---
- General Post-Op/Procedure Note Date of Surgery/Procedure: 12/29/18 Operative Procedure(s): c scope Findings: normal exam Pre Op Diagnosis: rlq abd pain Post-Op Diagnosis: nl colon exam Anesthesia Technique: MAC Primary Surgeon: Kenji Ramos Anesthesia Provider: Darcy Pop Pathology: none Complications: None Condition: Good Free Text/Narrative:: see dictation
[2018-12-29 10:17] VITALS: BP 119/75
--- NOTE | 2018-12-29 14:45 | OR ---
DATE OF OPERATION: 12/29/2018 SURGEON: Kenji Ramos MD PROCEDURE PERFORMED: Colonoscopy. PREOPERATIVE DIAGNOSIS: Right lower quadrant abdominal pain. POSTOPERATIVE DIAGNOSIS: Normal colonoscopic exam. INDICATIONS FOR PROCEDURE: This is a 28-year-old white female, who is referred with a history of some vague abdominal discomfort in the right lower quadrant. She was offered and accepted a colonoscopy. DESCRIPTION OF OPERATION: After an excellent IV sedation was administered, digital rectal exam was performed. Flexible colonoscope was inserted and advanced to the cecum. Attempts to intubate the ileocecal valve were not successful. However, the following findings were noted: Ascending colon was unremarkable. Transverse colon was unremarkable. Descending colon was unremarkable. Sigmoid and rectum, unremarkable. Digital rectal exam was unremarkable as well. The patient tolerated the procedure well. At this point, I really do not have a good GI explanation for the abdominal pain, and I recommend that she follow up with her primary care provider for further workup. /[id number] ELENO/TITO
== END 2018-12-29 10:11 | disposition home or self-care (01) ==
LOC: FB.SDS 07:16
PROVIDERS: ATTEND Surgery
DX: R10.31 Right lower quadrant pain (principal); G43.909 Migraine, unspecified, not intractable, without status migrainosus; M47.816 Spondylosis without myelopathy or radiculopathy, lumbar region; E66.9 Obesity, unspecified; Z68.32 Body mass index [BMI] 32.0-32.9, adult; Z79.899 Other long term (current) drug therapy; Z91.048 Other nonmedicinal substance allergy status; Z88.8 Allergy status to other drugs, medicaments and biological substances
CPT/HCPCS: 81025; J2250; J2704; J7120

== ENCOUNTER 2019-01-05 07:36 | Emergency (ER) | payer BC, MEDICARE ==
[2019-01-05] MEDS ORDERED: Sodium Chloride 0.9% 1,000 ML IV ONE (08:26)
[2019-01-05] MEDS ORDERED: Ketorolac 30 MG/ML SDV IVPUSH ONE (08:26)
[2019-01-05] MEDS ORDERED: Prochlorperazine 10 MG in Sodium Chloride 0.9% 50 ML IV ONE (08:32)
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
[2019-01-05] MEDS ORDERED: diphenhydrAMINE 50 MG/ML SDV IVPUSH ONE (09:26)
[2019-01-05] MEDS ORDERED: predniSONE 20 MG Tab PO ONE (11:16)
[2019-01-05] MEDS ORDERED: LORazepam 2 MG/ML SDV IVPUSH ONE (11:20)
[2019-01-05] MEDS ORDERED: predniSONE 20 MG Tab ONE (12:29)
[2019-01-05 17:26] VITALS: BP 109/44; PULSE 74
== END 2019-01-05 12:57 | disposition home or self-care (01) ==
LOC: FB.ED 07:36
DX: G43.109 Migraine with aura, not intractable, without status migrainosus (principal); M19.90 Unspecified osteoarthritis, unspecified site; E66.9 Obesity, unspecified; Z90.49 Acquired absence of other specified parts of digestive tract; Z98.890 Other specified postprocedural states; Z91.09 Other allergy status, other than to drugs and biological substances; Z88.8 Allergy status to other drugs, medicaments and biological substances
CPT/HCPCS: 36415; 80048; 81025; 96365; 96375; 99283; A9270; J0780; J1200; J1885; J2060; J7030; J7050

== ENCOUNTER 2019-01-08 15:44 | Emergency (ER) | payer BC, MEDICARE ==
[2019-01-08 16:02] VITALS: BP 127/69; PULSE 89
[2019-01-08] MEDS ORDERED: Metoclopramide 10 MG/2 ML SDV IVPUSH ONE (16:39)
[2019-01-08] MEDS ORDERED: Ketorolac 30 MG/ML SDV IVPUSH ONE ×2 (16:39→17:28)
[2019-01-08] MEDS ORDERED: Sodium Chloride 0.9% 1,000 ML IV SCH ×2 (16:45)
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
[2019-01-08] MEDS ORDERED: Ondansetron 4 MG/2 ML SDV IVPUSH ONE (17:29)
[2019-01-08] MEDS ORDERED: diphenhydrAMINE 50 MG/ML SDV IVPUSH ONE (17:50)
[2019-01-08] MEDS ORDERED: Dexamethasone 4 MG/ML 5 ML MDV IVPUSH ONE (18:51)
== END 2019-01-08 19:45 | disposition home or self-care (01) ==
LOC: FB.ED 15:44
DX: G43.909 Migraine, unspecified, not intractable, without status migrainosus (principal); F41.0 Panic disorder [episodic paroxysmal anxiety]; F32.9 Major depressive disorder, single episode, unspecified; E66.9 Obesity, unspecified; Z68.33 Body mass index [BMI] 33.0-33.9, adult; M19.90 Unspecified osteoarthritis, unspecified site; Z88.8 Allergy status to other drugs, medicaments and biological substances; Z79.899 Other long term (current) drug therapy
CPT/HCPCS: 96361; 96374; 96375; 96376; 99283; J1100; J1200; J1885; J2405; J2765; J7030

== ENCOUNTER 2019-02-13 16:01 | Emergency (ER) | payer MEDICARE ==
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
[2019-02-13] MEDS ORDERED: diphenhydrAMINE 50 MG/ML SDV IVPUSH ONE (17:12)
[2019-02-13] MEDS ORDERED: Sodium Chloride 0.9% 1,000 ML IV ONE (17:12)
[2019-02-13] MEDS ORDERED: Haloperidol Lactate 5 MG/ML SDV IV ONE (17:12)
[2019-02-13] MEDS ORDERED: Dexamethasone 4 MG/ML 5 ML MDV IVPUSH ONE (17:12)
[2019-02-13] MEDS ORDERED: Ketorolac 30 MG/ML SDV IVPUSH ONE (17:12)
[2019-02-13 17:25] VITALS: BP 127/71
[2019-02-13] MEDS: Sodium Chloride 0.9% 10 ML Syringe FLUSH PRN ×2 (17:56→18:28)
[2019-02-13] MEDS ORDERED: Metoclopramide 10 MG/2 ML SDV IVPUSH ONE (18:08)
[2019-02-13] MEDS ORDERED: LORazepam 2 MG/ML SDV IVPUSH ONE (18:08)
[2019-02-13 18:49] VITALS: PULSE 78
== END 2019-02-13 19:15 | disposition home or self-care (01) ==
LOC: FB.ED 16:01
DX: G43.109 Migraine with aura, not intractable, without status migrainosus (principal); J45.909 Unspecified asthma, uncomplicated; E66.9 Obesity, unspecified; Z68.33 Body mass index [BMI] 33.0-33.9, adult; Z88.8 Allergy status to other drugs, medicaments and biological substances
CPT/HCPCS: 96361; 96374; 96375; 99283-25; J1100; J1200; J1885; J2060; J2765; J7030

== ENCOUNTER 2019-03-17 07:16 | Emergency (ER) | payer BC, MEDICARE ==
[2019-03-17] MEDS ORDERED: Sodium Chloride 0.9% 1,000 ML IV ONE (07:52)
[2019-03-17] MEDS ORDERED: Sodium Chloride 0.9% 10 ML Syringe FLUSH PRN (07:52)
[2019-03-17] MEDS ORDERED: Ketorolac 30 MG/ML SDV IVPUSH ONE (07:53)
[2019-03-17] MEDS ORDERED: Prochlorperazine 10 MG/2 ML SDV IVPUSH ONE (07:53)
[2019-03-17] MEDS ORDERED: diphenhydrAMINE 50 MG/ML SDV IVPUSH ONE (07:53)
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
[2019-03-17 17:07] VITALS: BP 106/62; PULSE 68
== END 2019-03-17 09:50 | disposition home or self-care (01) ==
LOC: FB.ED 07:16
DX: G43.109 Migraine with aura, not intractable, without status migrainosus (principal); F41.9 Anxiety disorder, unspecified; F32.9 Major depressive disorder, single episode, unspecified; Z88.8 Allergy status to other drugs, medicaments and biological substances; Z91.048 Other nonmedicinal substance allergy status; Z79.899 Other long term (current) drug therapy
CPT/HCPCS: 96361; 96374; 96375; 99283; J0780; J1200; J1885; J7030; 99284

== ENCOUNTER 2019-06-04 12:28 | Emergency (ER) | payer MEDICARE ==
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
[2019-06-04] MEDS ORDERED: Sodium Chloride 0.9% 10 ML Syringe FLUSH PRN (13:02)
[2019-06-04] MEDS ORDERED: Sodium Chloride 0.9% 1,000 ML IV ONE (13:03)
[2019-06-04] MEDS ORDERED: diphenhydrAMINE 50 MG/ML SDV IVPUSH ONE (13:03)
[2019-06-04] MEDS ORDERED: Prochlorperazine 10 MG in Sodium Chloride 0.9% 50 ML IV ONE (13:03)
[2019-06-04] MEDS ORDERED: Ketorolac 30 MG/ML SDV IVPUSH ONE (13:03)
[2019-06-04] MEDS ORDERED: LORazepam 2 MG/ML SDV IVPUSH ONE (14:21)
[2019-06-04 17:02] VITALS: BP 124/72; PULSE 69
[2019-06-04] MEDS ORDERED: Tamsulosin 0.4 MG Cap.ER PO ONE (17:14)
== END 2019-06-04 17:30 | disposition home or self-care (01) ==
LOC: FB.ED 12:28
DX: G43.109 Migraine with aura, not intractable, without status migrainosus (principal); N20.1 Calculus of ureter; J45.909 Unspecified asthma, uncomplicated; E66.9 Obesity, unspecified; Z68.33 Body mass index [BMI] 33.0-33.9, adult; Z88.8 Allergy status to other drugs, medicaments and biological substances; Z91.048 Other nonmedicinal substance allergy status
CPT/HCPCS: 36415; 74176; 84484; 93005; 96361; 96365; 96375; 99284; A9270; J0780; J1200; J1885; J2060; J7030; J7050

== ENCOUNTER 2019-06-08 19:02 | Emergency (ER) | payer MEDICARE ==
[2019-06-08] MEDS ORDERED: Cyclobenzaprine 10 MG Tab PO ONE (19:03)
[2019-06-08 19:16] VITALS: BP 145/83; PULSE 83
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
== END 2019-06-08 19:28 | disposition home or self-care (01) ==
LOC: FB.ED 19:02
DX: M54.6 Pain in thoracic spine (principal); J45.909 Unspecified asthma, uncomplicated; K21.9 Gastro-esophageal reflux disease without esophagitis; E66.9 Obesity, unspecified; Z79.899 Other long term (current) drug therapy; Z91.09 Other allergy status, other than to drugs and biological substances; Z88.8 Allergy status to other drugs, medicaments and biological substances
CPT/HCPCS: 99283; A9270

== ENCOUNTER 2019-07-31 04:22 | Emergency (ER) | payer MEDICARE, OTHER ==
[2019-07-31 04:37] VITALS: BP 134/95; PULSE 104
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
== END 2019-07-31 05:08 | disposition left against medical advice (07) ==
LOC: FB.ED 04:22
DX: J03.90 Acute tonsillitis, unspecified (principal); J45.909 Unspecified asthma, uncomplicated; F41.9 Anxiety disorder, unspecified; F32.9 Major depressive disorder, single episode, unspecified; E66.9 Obesity, unspecified; Z68.33 Body mass index [BMI] 33.0-33.9, adult; Z88.8 Allergy status to other drugs, medicaments and biological substances; Z91.09 Other allergy status, other than to drugs and biological substances; Z79.899 Other long term (current) drug therapy
CPT/HCPCS: 87081; 87880-QW; 99282; 99283

== ENCOUNTER 2019-09-09 20:43 | Emergency (ER) | payer SELFPAY ==
[2019-09-09 21:11] VITALS: BP 125/78; PULSE 102
[2019-09-09] MEDS ORDERED: Sodium Chloride 0.9% 10 ML Syringe FLUSH PRN (21:15)
[2019-09-09] MEDS ORDERED: Ketorolac 30 MG/ML SDV IVPUSH ONE (21:16)
[2019-09-09] MEDS ORDERED: Sodium Chloride 0.9% 1,000 ML IV ONE (21:16)
[2019-09-09] MEDS ORDERED: Prochlorperazine 10 MG/2 ML SDV IVPUSH ONE (21:17)
[2019-09-09] MEDS ORDERED: diphenhydrAMINE 50 MG/ML SDV IVPUSH ONE (21:17)
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
== END 2019-09-09 22:54 | disposition home or self-care (01) ==
LOC: FB.ED 20:43
DX: G43.109 Migraine with aura, not intractable, without status migrainosus (principal); F41.9 Anxiety disorder, unspecified; F32.9 Major depressive disorder, single episode, unspecified; E66.9 Obesity, unspecified; J45.909 Unspecified asthma, uncomplicated; Z88.8 Allergy status to other drugs, medicaments and biological substances; Z91.048 Other nonmedicinal substance allergy status; Z68.33 Body mass index [BMI] 33.0-33.9, adult
CPT/HCPCS: 96361; 96374; 96375; 99283; 99284; J0780; J1200; J1885; J7030

== ENCOUNTER 2019-12-12 12:35 | Emergency (ER) | payer SELFPAY ==
[2019-12-12 12:52] VITALS: BP 136/86; PULSE 109
[2019-12-12] MEDS ORDERED: Metoclopramide 10 MG/2 ML SDV IVPUSH ONE (13:10)
[2019-12-12] MEDS ORDERED: Ketorolac 30 MG/ML SDV IVPUSH ONE (13:10)
[2019-12-12] MEDS ORDERED: Sodium Chloride 0.9% 1,000 ML IV ONE (13:10)
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
[2019-12-12] MEDS ORDERED: diphenhydrAMINE 50 MG/ML SDV IVPUSH ONE (14:37)
[2019-12-12] MEDS ORDERED: hydrOXYzine HCl 50 MG/ML SDV IM ONE (14:50)
== END 2019-12-12 15:40 | disposition home or self-care (01) ==
LOC: FB.ED 12:35
DX: F41.9 Anxiety disorder, unspecified (principal); G44.209 Tension-type headache, unspecified, not intractable; J45.909 Unspecified asthma, uncomplicated; F32.9 Major depressive disorder, single episode, unspecified; Z63.0 Problems in relationship with spouse or partner; E66.9 Obesity, unspecified; Z68.33 Body mass index [BMI] 33.0-33.9, adult; Z88.8 Allergy status to other drugs, medicaments and biological substances; Z91.048 Other nonmedicinal substance allergy status; Z79.899 Other long term (current) drug therapy
CPT/HCPCS: 96372; 96374; 96375; 99283; J1885; J2765; J3410; J7030; 99282; J1200

== ENCOUNTER 2020-06-04 11:37 | Emergency (ER) | payer MEDICARE ==
[2020-06-04] MEDS ORDERED: Sodium Chloride 0.9% 10 ML Syringe FLUSH PRN (12:06)
[2020-06-04] MEDS ORDERED: Morphine 4 MG/ML VIAL IVPUSH ONE (12:09)
[2020-06-04] MEDS ORDERED: Ondansetron 4 MG/2 ML SDV IVPUSH ONE (12:09)
[2020-06-04] MEDS ORDERED: Sodium Chloride 0.9% 1,000 ML IV SCH (12:15)
[2020-06-04] MEDS ORDERED: diphenhydrAMINE 50 MG/ML SDV IVPUSH ONE ×2 (12:37→14:36)
[2020-06-04] MEDS ORDERED: hydrOXYzine HCl 50 MG/ML SDV IM ONE (13:24)
[2020-06-04] MEDS ORDERED: Ketorolac 30 MG/ML SDV IVPUSH ONE (13:24)
[2020-06-04] MEDS ORDERED: Lidocaine/EPINEPHrine/Tetracaine Soln 5 ML Each TOP ONE (14:14)
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
[2020-06-04] MEDS ORDERED: Morphine 2 MG/ML SYRINGE IVPUSH ONE (14:23)
--- NOTE | 2020-06-04 15:52 | CT ---
INDICATION: Fall. CT HEAD WITHOUT CONTRAST: Spiral 3.75 mm axial sections were obtained through the brain without contrast with axial, sagittal and coronal reconstructions 06/04/20 and compared with 12/26/18. Total exam DLP was 12.96.53 mGy-cm. Paranasal sinuses and mastoid air cells were well aerated. No cranial fracture site was identified. There is soft tissue swelling and subcutaneous emphysema overlying the area of the right frontal bone anterolaterally and extending to0 the level of the upper orbit. The orbits appear to be intact. No significant interval change, shift of midline structures, ventricular abnormalities, or abnormal areas of density were identified - no evidence of hematoma or hemorrhage was identified. IMPRESSION: 1. No acute intracranial abnormality. 2. No fracture site identified although scalp injuries are noted. 3. Essentially normal CT brain without contrast. Report was called to Dr. Mart at 1357 hours. [facility]
--- NOTE | 2020-06-04 15:59 | CT ---
INDICATION: Fall. CT CERVICAL SPINE: Spiral 2.5 mm axial sections were obtained through the cervical spine with sagittal and coronal reconstructions 06/04/20 and compared with 03/14/13. Total exam DLP was 367.53 mGy-cm. Posterior hypertrophic changes are again noted of moderate degree at C3-4 producing mild impingement on the neural foramen on the right. Vertebral body and disk heights were fairly well maintained, however, without evidence of a definite acute fracture or dislocation. Bone density appeared to be normal. Prevertebral spaces appeared to be normal. Mild hypertrophic degenerative changes are noted at the odontoatlantian joint with some narrowing inferiorly. IMPRESSION: 1. No acute fracture or dislocation. 2. Osteoarthritis. Report was called to Dr. Mart at 1357 hours. [facility]
--- NOTE | 2020-06-04 16:08 | CT ---
INDICATION: Fall. CT LUMBOSACRAL SPINE WITHOUT CONTRAST: Spiral 2.5 mm axial sections were obtained through the lumbosacral spine with sagittal and coronal reconstructions 06/04/20 and compared with MRI of the lumbosacral spine dated 03/29/15. There are some mild degenerative changes and some bulging disks with very minimal narrowing of the spinal canal at L3-4 and [id number] narrowing of the spinal canal at L4-5. Overall vertebral body and disk heights were fairly well maintained, however, without evidence of a fracture or dislocation identified. Sacroiliac joint showed some mild degenerative hypertrophic change, but appeared otherwise intact with no fracture or dislocation there. No prevertebral mass was seen. IMPRESSION: There are some mild degenerative changes with mild impingement on the spinal canal at L3-4 and L4-5. No acute fracture or dislocation is identified. Report was called to Dr. Mart at [address] [facility]
--- NOTE | 2020-06-04 16:13 | CR ---
INDICATION: Fall. PELVIS WITH BILATERAL HIPS: Two frontal views of the pelvis with frontal and lateral views of the hips were obtained 06/04/20 and compared with 12/20/12 pelvis. As on the previous study, no evidence of an acute fracture or dislocation was identified. Sacroiliac joints and hip joints appear to be intact with minimal degenerative changes at the sacroiliac joints right greater than left. Hip joint spaces are well maintained. An acute fracture or dislocation was not identified. IMPRESSION: Pelvis and bilateral hips show no evidence of an acute fracture or dislocation. Report was called to Dr. Mart at 1357 hours. [facility]
[2020-06-04 20:03] VITALS: BP 122/85; PULSE 100
== END 2020-06-04 15:17 | disposition home or self-care (01) ==
LOC: FB.ED 11:37
DX: S01.01XA Laceration without foreign body of scalp, initial encounter (principal); M54.5 Low back pain; M25.551 Pain in right hip; M25.552 Pain in left hip; J45.909 Unspecified asthma, uncomplicated; E66.9 Obesity, unspecified; Z68.33 Body mass index [BMI] 33.0-33.9, adult; Z88.8 Allergy status to other drugs, medicaments and biological substances; Z91.048 Other nonmedicinal substance allergy status; Z79.899 Other long term (current) drug therapy; W10.9XXA Fall (on) (from) unspecified stairs and steps, initial encounter
CPT/HCPCS: 12002; 36415; 70450; 72125; 72131; 73521; 80053; 82550; 85025; 85610; 85730; 96372; 96374; 96375; 96376; 99284; A9270; J1200; J1885; J2270; J2405; J3410; J7030

== ENCOUNTER 2023-11-14 14:34 | Emergency (ER) | payer MEDICAID, MEDICARE ==
[2023-11-14 15:30] LABS: HEMATOCRIT 44.8 % (34.2-48.2); HEMOGLOBIN 15.2 g/dL (11.4-15.5); MEAN CORPUSCULAR HEMOGLOBIN 29.1 pg (23.9-33.9); MEAN CORPUSCULAR HGB CONC 33.9 g/dL (31.9-34.8); MEAN CORPUSCULAR VOLUME 85.9 fL (76.7-100.5); MEAN PLATELET VOLUME 7.6 fL (7.1-12.4); PLATELET COUNT,PLT 397 x10(3)uL (151-488); RED BLOOD CELL COUNT 5.21 x10(6)uL (3.60-5.20); RED CELL DISTRIBUTION WIDTH 13.1 % (12.3-16.5)
[2023-11-14 15:34] LABS: BLOOD UREA NITROGEN,BUN 14 mg/dL (7-18); BUN/CREATININE RATIO 17.5 (9-20); CALCIUM 9.2 mg/dL (8.6-10.2); CARBON DIOXIDE,CO2 23 mmol/L (21-32); CHLORIDE,CL 105 mmol/L (100-110); CREATININE 0.8 mg/dL (0.55-1.02); EST CRCL DRUG DOSING (CG) 107.15 mL/min; ESTIMATED GFR 99 mL/min (>60); GLUCOSE RANDOM 122 mg/dL (80-116); SODIUM,NA 138 mmol/L (135-145)
[2023-11-14 15:40] LABS: A/G RATIO 0.8; ALANINE AMINOTRANSFERASE,ALT 24 U/L (12-36); ALBUMIN 3.6 g/dL (3.5-5.2); ALKALINE PHOSPHATASE 120 IU/L (56-112); ASPARTATE AMNIOTRANSFERASE,AST 12 IU/L (5-25); BILIRUBIN TOTAL 0.5 mg/dL (0.1-1.3); PROTEIN TOTAL,TP 8.2 g/dL (6.0-8.0)
[2023-11-14 15:41] LABS: BASE EXCESS VENOUS,POC -3 mmol/L (-2 - 3+); PCO2 VENOUS,POC 24 mmHg (41-51); PH VENOUS,POC 7.49 pH Units (7.32-7.43)
[2023-11-14 15:41] LABS: BILIRUBIN,URINE NEGATIVE (NEGATIVE); GLUCOSE,URINE NORMAL (NORMAL); KETONES,URINE NEGATIVE (NEGATIVE); LEUKOCYTE ESTERASE,URINE MODERATE (NEGATIVE); NITRITE,URINE NEGATIVE (NEGATIVE); OCCULT BLOOD,URINE MODERATE (NEGATIVE); PROTEIN,URINE TRACE mg/dL (NEGATIVE); UROBILINOGEN,URINE NORMAL (NEGATIVE)
[2023-11-14 15:43] LABS: APPEARANCE,URINE SLIGHTLY CLOUDY (CLEAR); COLOR,URINE YELLOW (YELLOW); SQUAMOUS EPITHELIAL CELLS,UR FEW (NS,R,O)
[2023-11-14 15:44] LABS: BACTERIA,URINE MANY (NS)
[2023-11-14 15:46] LABS: LYMPHOCYTES PERCENT MAN 12 % (13-37); MONOCYTES PERCENT MAN 6 % (4-12); SEG NEUTROPHILS PERCENT MAN 82 % (46-82)
[2023-11-14 15:47] LABS: PRO B-TYPE NATRIUR PEPT,BNPPRO 46 pg/mL (<=125)
[2023-11-14 15:50] LABS: TROPONIN I < 4.0 pg/mL (4.0-60.3)
[2023-11-14] MEDS: Sodium Chloride 0.9% 1,000 ML IV ONE (16:38)
[2023-11-14] MEDS: Iopamidol 755 Mg/ML 100 ML Bottle IV SCH ×2 (17:31→17:32)
[2023-11-14] MEDS: Cephalexin 500 MG Cap PO ONE (18:58)
[2023-11-14] MEDS: Sodium Chloride 0.9% 10 ML Syringe FLUSH PRN (18:59)
[2023-11-14] MEDS: LORazepam 2 MG/ML SDV IVPUSH ONE (18:59)
[2023-11-14] MEDS: Nitroglycerin 0.4 MG Tab.SL SL ONE (20:13)
[2023-11-14] MEDS: Ondansetron 4 MG/2 ML SDV IVPUSH ONE (20:14)
[2023-11-14] MEDS: Nitroglycerin 0.4 MG Tab.SL SL PRN (20:43)
[2023-11-14] MEDS: Metoclopramide 10 MG/2 ML SDV IVPUSH ONE (21:22)
[2023-11-15 00:31] VITALS: BP 113/81; PULSE 99
== END 2023-11-14 22:56 | disposition home or self-care (01) ==
LOC: FB.ED 14:34
DX: R07.89 Other chest pain (principal); K21.9 Gastro-esophageal reflux disease without esophagitis; N39.0 Urinary tract infection, site not specified; E86.0 Dehydration; F41.9 Anxiety disorder, unspecified; E66.9 Obesity, unspecified; Z90.49 Acquired absence of other specified parts of digestive tract; Z79.899 Other long term (current) drug therapy; Z88.8 Allergy status to other drugs, medicaments and biological substances; Z91.048 Other nonmedicinal substance allergy status; Z68.32 Body mass index [BMI] 32.0-32.9, adult
CPT/HCPCS: 36415; 71275; 80053; 81001; 81025; 83735; 83880; 84484; 85025; 85379; 86140; 87086; 87088; 87186; 93005; 96361; 96374; 96375; 99285; A9270; J2060; J2405; J2765; J3490; J7030; Q9967

== ENCOUNTER 2024-01-21 20:13 | Emergency (ER) | payer MEDICAID ==
[2024-01-21] MEDS ORDERED: Sodium Chloride 0.9% 1,000 ML IV ONE (20:33)
[2024-01-21] MEDS ORDERED: Sodium Chloride 0.9% 10 ML Syringe FLUSH PRN (20:34)
[2024-01-21] MEDS ORDERED: dexAMETHasone 12 MG in Sodium Chloride 0.9% 50 ML IVPUSH ONE (20:43)
[2024-01-21] MEDS ORDERED: Ketorolac 30 MG/ML SDV IVPUSH ONE (20:43)
[2024-01-21] MEDS ORDERED: Prochlorperazine 10 MG/2 ML SDV IVPUSH ONE (20:43)
[2024-01-21] MEDS ORDERED: diphenhydrAMINE 50 MG/ML SDV IVPUSH ONE (20:43)
[2024-01-21] MEDS: Ketorolac 30 MG/ML SDV IM ONE (21:11)
[2024-01-21] MEDS: Dexamethasone 4 MG/ML 5 ML MDV IM ONE (21:12)
[2024-01-21] MEDS: Prochlorperazine 10 MG/2 ML SDV IM ONE (21:16)
[2024-01-21] MEDS: diphenhydrAMINE 50 MG/ML SDV IM ONE (21:16)
[2024-01-21 22:17] VITALS: BP 139/94; PULSE 85
== END 2024-01-21 22:18 | disposition home or self-care (01) ==
LOC: FB.ED 20:13
DX: G43.909 Migraine, unspecified, not intractable, without status migrainosus (principal); K21.9 Gastro-esophageal reflux disease without esophagitis; E66.9 Obesity, unspecified; Z79.899 Other long term (current) drug therapy; Z88.8 Allergy status to other drugs, medicaments and biological substances; Z91.048 Other nonmedicinal substance allergy status
CPT/HCPCS: 96372; 99283; J0780; J1100; J1200; J1885

== ENCOUNTER 2024-02-01 02:12 | Emergency (ER) | payer MEDICAID, MEDICARE ==
[2024-02-01] MEDS ORDERED: Naloxone 0.4 MG/ML SDV IVPUSH PRN (02:43)
[2024-02-01] MEDS: Ketorolac 30 MG/ML SDV IVPUSH ONE (02:51)
[2024-02-01] MEDS: Morphine 4 MG/ML VIAL IVPUSH ONE (02:52)
[2024-02-01] MEDS: diphenhydrAMINE 50 MG/ML SDV IVPUSH ONE (03:03)
[2024-02-01] MEDS: HYDROmorphone 2 MG/ML SDV IVPUSH ONE (03:37)
[2024-02-01] MEDS: tiZANidine 4 MG Tab PO ONE (03:45)
[2024-02-01 04:21] VITALS: BP 133/80; PULSE 81
== END 2024-02-01 04:40 | disposition home or self-care (01) ==
LOC: FB.ED 02:12
DX: M51.369 Other intervertebral disc degeneration, lumbar region without mention of lumbar back pain or lower extremity pain (principal); J45.909 Unspecified asthma, uncomplicated; K21.9 Gastro-esophageal reflux disease without esophagitis; E66.9 Obesity, unspecified; Z79.899 Other long term (current) drug therapy; Z88.5 Allergy status to narcotic agent; Z88.8 Allergy status to other drugs, medicaments and biological substances; Z91.048 Other nonmedicinal substance allergy status
CPT/HCPCS: 96374; 96375; 99283; 99284; A9270; J1171; J1200; J1885; J2270

== ENCOUNTER 2024-04-04 02:29 | Emergency (ER) | payer MEDICAID, MEDICARE ==
[2024-04-04 02:49] VITALS: BP 121/83; PULSE 81
[2024-04-04] MEDS: HYDROmorphone 2 MG/ML SDV IM ONE (03:47)
== END 2024-04-04 04:25 | disposition home or self-care (01) ==
LOC: FB.ED 02:29
DX: M54.50 Low back pain, unspecified (principal); J45.909 Unspecified asthma, uncomplicated; K21.9 Gastro-esophageal reflux disease without esophagitis; E66.9 Obesity, unspecified; Z90.49 Acquired absence of other specified parts of digestive tract; Z87.39 Personal history of other diseases of the musculoskeletal system and connective tissue; Z88.5 Allergy status to narcotic agent; Z88.8 Allergy status to other drugs, medicaments and biological substances; Z91.048 Other nonmedicinal substance allergy status; Z79.899 Other long term (current) drug therapy; W01.198A Fall on same level from slipping, tripping and stumbling with subsequent striking against other object, initial encounter; Z68.33 Body mass index [BMI] 33.0-33.9, adult
CPT/HCPCS: 72131; 96372; 99284; J1171

== ENCOUNTER 2024-05-01 17:06 | Emergency (ER) | payer MEDICAID, MEDICARE ==
[2024-05-01] MEDS: Ketorolac 30 MG/ML SDV IM ONE (18:16)
[2024-05-01] MEDS: Prochlorperazine 10 MG/2 ML SDV IM ONE (19:22)
[2024-05-01 19:25] VITALS: BP 122/74; PULSE 94
[2024-05-01] MEDS: Acetaminophen/HYDROcodone 325-5 MG Tab PO ONE (21:26)
[2024-05-01] MEDS: HYDROmorphone 2 MG/ML SDV IM ONE (21:26)
== END 2024-05-01 20:35 | disposition home or self-care (01) ==
LOC: FB.ED 17:06
DX: S39.012A Strain of muscle, fascia and tendon of lower back, initial encounter (principal); J45.909 Unspecified asthma, uncomplicated; K21.9 Gastro-esophageal reflux disease without esophagitis; E66.9 Obesity, unspecified; Z68.33 Body mass index [BMI] 33.0-33.9, adult; Z90.49 Acquired absence of other specified parts of digestive tract; Z88.5 Allergy status to narcotic agent; Z88.8 Allergy status to other drugs, medicaments and biological substances; Z91.048 Other nonmedicinal substance allergy status; Z79.899 Other long term (current) drug therapy; W00.9XXA Unspecified fall due to ice and snow, initial encounter; Y92.019 Unspecified place in single-family (private) house as the place of occurrence of the external cause
CPT/HCPCS: 72100; 96372; 99283; J0780; J1885

== ENCOUNTER 2024-05-24 18:16 | Emergency (ER) | payer MEDICAID ==
[2024-05-24 18:49] VITALS: BP 156/91; PULSE 90
[2024-05-24] MEDS ORDERED: Sodium Chloride 0.9% 10 ML Syringe FLUSH PRN (19:06)
[2024-05-24] MEDS: Ketorolac 30 MG/ML SDV IVPUSH ONE (19:38)
[2024-05-24] MEDS: diphenhydrAMINE 50 MG/ML SDV IVPUSH ONE (19:39)
[2024-05-24] MEDS: Prochlorperazine 10 MG/2 ML SDV IVPUSH ONE (19:42)
[2024-05-24] MEDS: Sodium Chloride 0.9% 1,000 ML IV ONE (19:44)
[2024-05-24] MEDS: Valproate Sodium 500 MG in Sodium Chloride 0.9% 100 ML IV ONE (20:25)
[2024-05-24] MEDS: Magnesium Sulfate/Water Premix 2 GM in Premix Bag 1 BAG IV ONE (20:25)
== END 2024-05-24 20:25 | disposition home or self-care (01) ==
LOC: FB.ED 18:16
DX: G43.909 Migraine, unspecified, not intractable, without status migrainosus (principal); F41.9 Anxiety disorder, unspecified; J45.909 Unspecified asthma, uncomplicated; Z88.5 Allergy status to narcotic agent; Z88.8 Allergy status to other drugs, medicaments and biological substances; Z91.048 Other nonmedicinal substance allergy status; Z79.899 Other long term (current) drug therapy; Z90.49 Acquired absence of other specified parts of digestive tract
CPT/HCPCS: 96361; 96374; 96375; 99283; J0780; J1200; J1885; J7030

== ENCOUNTER 2024-07-10 04:18 | Emergency (ER) | payer MEDICAID ==
[2024-07-10] MEDS ORDERED: Sodium Chloride 0.9% 10 ML Syringe FLUSH PRN (04:24)
[2024-07-10] MEDS ORDERED: Sodium Chloride 0.9% 1,000 ML IV SCH (04:30)
[2024-07-10] MEDS: Metoclopramide 10 MG/2 ML SDV IVPUSH ONE (05:29)
[2024-07-10] MEDS: diphenhydrAMINE 50 MG/ML SDV IVPUSH ONE (05:29)
[2024-07-10] MEDS: HYDROmorphone 2 MG/ML SDV IVPUSH ONE ×2 (05:29→09:02)
[2024-07-10] MEDS ORDERED: hydrOXYzine HCl 50 MG/ML SDV IM ONE (06:44)
[2024-07-10] MEDS ORDERED: Ketorolac 30 MG/ML SDV IM ONE (06:45)
[2024-07-10] MEDS ORDERED: Ketorolac 30 MG/ML SDV ONE (06:50)
[2024-07-10] MEDS: Ketorolac 30 MG/ML SDV IM ONE (06:53)
[2024-07-10] MEDS: hydrOXYzine HCl 50 MG/ML SDV IM ONE (06:53)
[2024-07-10] MEDS: Sodium Chloride 0.9% 1,000 ML IV ONE (07:48)
[2024-07-10] MEDS: LORazepam 2 MG/ML SDV IVPUSH ONE (09:03)
[2024-07-10] MEDS: SUMAtriptan 6 MG/0.5 ML SDV SUBCUT ONE (09:04)
[2024-07-10 09:22] VITALS: BP 144/78; PULSE 78
== END 2024-07-10 10:00 | disposition home or self-care (01) ==
LOC: FB.ED 04:18
DX: G43.109 Migraine with aura, not intractable, without status migrainosus (principal); E66.9 Obesity, unspecified; J45.909 Unspecified asthma, uncomplicated; M19.90 Unspecified osteoarthritis, unspecified site; Z88.8 Allergy status to other drugs, medicaments and biological substances; Z88.5 Allergy status to narcotic agent; Z91.048 Other nonmedicinal substance allergy status; Z79.899 Other long term (current) drug therapy; Z79.1 Long term (current) use of non-steroidal anti-inflammatories (NSAID); Z90.49 Acquired absence of other specified parts of digestive tract; Z68.34 Body mass index [BMI] 34.0-34.9, adult
CPT/HCPCS: 70450; 96372; 96374; 96375; 96376; 99284; J1171; J1200; J1885; J2060; J2765; J3030; J7030

== ENCOUNTER 2024-07-25 19:24 | Emergency (ER) | payer MEDICAID, MEDICARE ==
[2024-07-25] MEDS: diphenhydrAMINE 50 MG/ML SDV IVPUSH ONE (20:46)
[2024-07-25] MEDS: Ketorolac 30 MG/ML SDV IVPUSH ONE (20:48)
[2024-07-25] MEDS: Prochlorperazine 10 MG/2 ML SDV IVPUSH ONE (20:50)
[2024-07-25] MEDS: Sodium Chloride 0.9% 1,000 ML IV ONE (20:51)
[2024-07-25] MEDS: Acetaminophen 500 MG Tab PO ONE (21:25)
[2024-07-25 21:54] VITALS: BP 113/54; PULSE 60
== END 2024-07-25 21:55 | disposition home or self-care (01) ==
LOC: FB.ED 19:24
DX: G43.909 Migraine, unspecified, not intractable, without status migrainosus (principal); Z88.5 Allergy status to narcotic agent; Z88.8 Allergy status to other drugs, medicaments and biological substances; Z91.048 Other nonmedicinal substance allergy status; Z79.899 Other long term (current) drug therapy; Z90.49 Acquired absence of other specified parts of digestive tract
CPT/HCPCS: 96361; 96374; 96375; 99283; 99283-25; A9270-GY; J0780; J1200; J1885; J7030

== ENCOUNTER 2024-09-06 04:25 | Emergency (ER) | payer MEDICAID ==
[2024-09-06] MEDS: Ketorolac 30 MG/ML SDV IM ONE (05:16)
[2024-09-06 05:33] LABS: BASOPHILS ABSOLUTE AUTO 0.1 x10-3/uL (0.0-0.1); BASOPHILS PERCENT AUTO 0.7 % (0.2-1.5); EOSINOPHILS ABSOLUTE AUTO 0.2 x10-3/uL (0.0-0.8); HEMOGLOBIN 14.1 g/dL (11.4-15.5); MEAN CORPUSCULAR VOLUME 84.9 fL (76.7-100.5); RED CELL DISTRIBUTION WIDTH 14.1 % (12.3-16.5)
[2024-09-06 05:38] LABS: BLOOD UREA NITROGEN,BUN 13 mg/dL (7-18); BUN/CREATININE RATIO 18.6 (9-20); CALCIUM 8.6 mg/dL (8.6-10.2); CARBON DIOXIDE,CO2 22 mmol/L (21-32); CHLORIDE,CL 106 mmol/L (100-110); CREATININE 0.7 mg/dL (0.55-1.02); ESTIMATED GFR 116 mL/min (>60); GLUCOSE RANDOM 121 mg/dL (80-116); HEMATOCRIT 40.8 % (34.2-48.2); LYMPHOCYTES ABSOLUTE AUTO 1.8 x10-3/uL (1.0-4.4); LYMPHOCYTES PERCENT AUTO 17.5 % (18.4-52.1); MEAN CORPUSCULAR HEMOGLOBIN 29.3 pg (23.9-33.9); MEAN CORPUSCULAR HGB CONC 34.5 g/dL (31.9-34.8); MONOCYTES PERCENT AUTO 9.7 % (4.4-15.7); NEUTROPHILS ABSOLUTE AUTO 7.4 x10-3/uL (1.5-6.3); NEUTROPHILS PERCENT AUTO 70.1 % (30.8-76.2); POTASSIUM,K 3.7 mmol/L (3.5-5.3); RED BLOOD CELL COUNT 4.81 x10(6)uL (3.60-5.20); SODIUM,NA 137 mmol/L (135-145); WHITE BLOOD CELL COUNT,WBC 11.1 x10-3/uL (3.0-10.3)
[2024-09-06 05:43] LABS: A/G RATIO 0.9; ALANINE AMINOTRANSFERASE,ALT 44 U/L (12-36); ALBUMIN 3.2 g/dL (3.5-5.2); ALKALINE PHOSPHATASE 125 IU/L (56-112); ASPARTATE AMNIOTRANSFERASE,AST 12 IU/L (5-25); BILIRUBIN TOTAL 0.3 mg/dL (0.1-1.3); PROTEIN TOTAL,TP 6.9 g/dL (6.0-8.0)
[2024-09-06 05:46] LABS: PLATELET COUNT,PLT 267 x10(3)uL (151-488)
[2024-09-06 07:53] VITALS: BP 122/78; PULSE 84
== END 2024-09-06 07:45 | disposition home or self-care (01) ==
LOC: FB.ED 04:25
DX: S40.011A Contusion of right shoulder, initial encounter (principal); S60.212A Contusion of left wrist, initial encounter; R55 Syncope and collapse; M54.12 Radiculopathy, cervical region; Z88.5 Allergy status to narcotic agent; Z88.8 Allergy status to other drugs, medicaments and biological substances; Z79.899 Other long term (current) drug therapy; J45.909 Unspecified asthma, uncomplicated; K21.9 Gastro-esophageal reflux disease without esophagitis; E66.9 Obesity, unspecified; Z90.49 Acquired absence of other specified parts of digestive tract; W19.XXXA Unspecified fall, initial encounter
CPT/HCPCS: 36415; 73030-RT; 73110-LT; 73130-LT; 80053; 83735; 84484; 85025; 93005; 96372; 99285; J1885

== ENCOUNTER 2024-10-07 01:02 | Emergency (ER) | payer MEDICAID ==
[2024-10-07] MEDS ORDERED: Sodium Chloride 0.9% 10 ML Syringe FLUSH PRN (01:21)
[2024-10-07 02:21] VITALS: BP 108/72; PULSE 79
[2024-10-07 02:53] LABS: BASOPHILS PERCENT AUTO 0.2 % (0.2-1.5); EOSINOPHILS ABSOLUTE AUTO 0.3 x10-3/uL (0.0-0.8); EOSINOPHILS PERCENT AUTO 3.1 % (0.6-8.1); HEMATOCRIT 45.3 % (34.2-48.2); HEMOGLOBIN 15.3 g/dL (11.4-15.5); LYMPHOCYTES ABSOLUTE AUTO 2.7 x10-3/uL (1.0-4.4); LYMPHOCYTES PERCENT AUTO 32.1 % (18.4-52.1); MEAN CORPUSCULAR HEMOGLOBIN 29.2 pg (23.9-33.9); MEAN CORPUSCULAR HGB CONC 33.8 g/dL (31.9-34.8); MEAN CORPUSCULAR VOLUME 86.3 fL (76.7-100.5); MEAN PLATELET VOLUME 9.3 fL (7.1-12.4); MONOCYTES ABSOLUTE AUTO 0.8 x10-3/uL (0.3-1.0); MONOCYTES PERCENT AUTO 9.1 % (4.4-15.7); NEUTROPHILS ABSOLUTE AUTO 4.6 x10-3/uL (1.5-6.3); NEUTROPHILS PERCENT AUTO 55.5 % (30.8-76.2); PLATELET COUNT,PLT 127 x10(3)uL (151-488); RED BLOOD CELL COUNT 5.25 x10(6)uL (3.60-5.20); RED CELL DISTRIBUTION WIDTH 14.2 % (12.3-16.5); WHITE BLOOD CELL COUNT,WBC 8.3 x10-3/uL (3.0-10.3)
[2024-10-07 03:01] LABS: BLOOD UREA NITROGEN,BUN 11 mg/dL (7-18); BUN/CREATININE RATIO 15.7 (9-20); CARBON DIOXIDE,CO2 23 mmol/L (21-32); CHLORIDE,CL 105 mmol/L (100-110); CREATININE 0.7 mg/dL (0.55-1.02); ESTIMATED GFR 116 mL/min (>60); GLUCOSE RANDOM 122 mg/dL (80-116); POTASSIUM,K 3.9 mmol/L (3.5-5.3); SODIUM,NA 141 mmol/L (135-145)
[2024-10-07 03:06] LABS: A/G RATIO 0.9; ALANINE AMINOTRANSFERASE,ALT 34 U/L (12-36); ALBUMIN 3.4 g/dL (3.5-5.2); ALKALINE PHOSPHATASE 131 IU/L (56-112); ASPARTATE AMNIOTRANSFERASE,AST 25 IU/L (5-25); BILIRUBIN TOTAL 0.4 mg/dL (0.1-1.3); MAGNESIUM 1.9 mg/dL (1.8-2.5); PROTEIN TOTAL,TP 7.3 g/dL (6.0-8.0)
[2024-10-07] MEDS: Ketorolac 30 MG/ML SDV IM ONE (03:27)
[2024-10-07 03:28] LABS: BILIRUBIN,URINE NEGATIVE (NEGATIVE); GLUCOSE,URINE NORMAL (NORMAL); KETONES,URINE NEGATIVE (NEGATIVE); LEUKOCYTE ESTERASE,URINE NEGATIVE (NEGATIVE); NITRITE,URINE NEGATIVE (NEGATIVE); OCCULT BLOOD,URINE MODERATE (NEGATIVE); PROTEIN,URINE NEGATIVE (NEGATIVE); UROBILINOGEN,URINE NORMAL (NEGATIVE)
[2024-10-07 03:29] LABS: APPEARANCE,URINE CLEAR (CLEAR); COLOR,URINE YELLOW (YELLOW)
[2024-10-07 03:35] LABS: BACTERIA,URINE FEW (NS); RBC,URINE 0-5 (0-5); SQUAMOUS EPITHELIAL CELLS,UR FEW (NS,R,O); WBC,URINE NOT SEEN (0-5)
[2024-10-07] MEDS: Dexamethasone 4 MG/ML 5 ML MDV IM ONE (04:43)
== END 2024-10-07 05:33 | disposition home or self-care (01) ==
LOC: FB.ED 01:02
DX: S00.03XA Contusion of scalp, initial encounter (principal); M47.22 Other spondylosis with radiculopathy, cervical region; R55 Syncope and collapse; R20.0 Anesthesia of skin; J45.909 Unspecified asthma, uncomplicated; K21.9 Gastro-esophageal reflux disease without esophagitis; E66.9 Obesity, unspecified; Z90.49 Acquired absence of other specified parts of digestive tract; Z79.899 Other long term (current) drug therapy; Z91.048 Other nonmedicinal substance allergy status; Z88.5 Allergy status to narcotic agent; Z88.8 Allergy status to other drugs, medicaments and biological substances; W19.XXXA Unspecified fall, initial encounter
CPT/HCPCS: 36415; 70450; 72125; 80053; 81001; 81025; 83735; 84484; 85025; 93005; 93010; 96372; 99284; 99285; J1100; J1885

== ENCOUNTER 2024-11-23 17:04 | Emergency (ER) | payer MEDICAID ==
[2024-11-23] MEDS: Sodium Chloride 0.9% 10 ML Syringe FLUSH PRN (18:40)
[2024-11-23] MEDS: Ketorolac 30 MG/ML SDV IVPUSH ONE (19:01)
[2024-11-23] MEDS: diphenhydrAMINE 50 MG/ML SDV IVPUSH ONE (19:02)
[2024-11-23] MEDS: Prochlorperazine 10 MG/2 ML SDV IVPUSH ONE (19:03)
[2024-11-23] MEDS: Dexamethasone 4 MG/ML 5 ML MDV IVPUSH ONE (19:06)
[2024-11-23] MEDS: Magnesium Sulf 1 GM/2 mL SDV 1 GM in Sodium Chloride 0.9% 50 ML IV ONE (19:07)
[2024-11-23 19:33] VITALS: BP 134/81; PULSE 92
== END 2024-11-23 19:45 | disposition home or self-care (01) ==
LOC: FB.ED 17:04
DX: G43.111 Migraine with aura, intractable, with status migrainosus (principal); E86.0 Dehydration; J45.909 Unspecified asthma, uncomplicated; K21.9 Gastro-esophageal reflux disease without esophagitis; Z90.49 Acquired absence of other specified parts of digestive tract; Z88.5 Allergy status to narcotic agent; Z88.8 Allergy status to other drugs, medicaments and biological substances; Z91.048 Other nonmedicinal substance allergy status; Z79.899 Other long term (current) drug therapy
CPT/HCPCS: 96365; 96375; 99283; J0780; J1100; J1200; J1885; J7030

== ENCOUNTER 2024-12-14 11:01 | Emergency (ER) | payer MEDICAID ==
[2024-12-14 12:12] LABS: BASOPHILS ABSOLUTE AUTO 0.1 x10-3/uL (0.0-0.1); BASOPHILS PERCENT AUTO 0.6 % (0.2-1.5); EOSINOPHILS ABSOLUTE AUTO 0.1 x10-3/uL (0.0-0.8); EOSINOPHILS PERCENT AUTO 1.7 % (0.6-8.1); LYMPHOCYTES ABSOLUTE AUTO 2.9 x10-3/uL (1.0-4.4); LYMPHOCYTES PERCENT AUTO 34.9 % (18.4-52.1); MEAN PLATELET VOLUME 7.5 fL (7.1-12.4); MONOCYTES ABSOLUTE AUTO 0.8 x10-3/uL (0.3-1.0); MONOCYTES PERCENT AUTO 9.1 % (4.4-15.7); NEUTROPHILS ABSOLUTE AUTO 4.4 x10-3/uL (1.5-6.3); NEUTROPHILS PERCENT AUTO 53.7 % (30.8-76.2); PLATELET COUNT,PLT 289 x10(3)uL (151-488); RED BLOOD CELL COUNT 4.98 x10(6)uL (3.60-5.20); RED CELL DISTRIBUTION WIDTH 14.0 % (12.3-16.5); WHITE BLOOD CELL COUNT,WBC 8.2 x10-3/uL (3.0-10.3)
[2024-12-14 12:22] LABS: BLOOD UREA NITROGEN,BUN 9 mg/dL (7-18); CARBON DIOXIDE,CO2 22 mmol/L (21-32); CHLORIDE,CL 106 mmol/L (100-110); CREATININE 0.6 mg/dL (0.55-1.02); ESTIMATED GFR 120 mL/min (>60); GLUCOSE RANDOM 87 mg/dL (80-116); POTASSIUM,K 4.1 mmol/L (3.5-5.3); SODIUM,NA 139 mmol/L (135-145)
[2024-12-14 12:27] LABS: A/G RATIO 0.9; ALANINE AMINOTRANSFERASE,ALT 17 U/L (12-36); ASPARTATE AMNIOTRANSFERASE,AST 16 IU/L (5-25); BILIRUBIN TOTAL 0.7 mg/dL (0.1-1.3); PROTEIN TOTAL,TP 7.1 g/dL (6.0-8.0)
[2024-12-14 12:31] LABS: LACTIC ACID 0.7 mmol/L (0.4-2.0)
[2024-12-14] MEDS: Ketorolac 30 MG/ML SDV IVPUSH ONE (13:54)
[2024-12-14] MEDS: Ondansetron 4 MG/2 ML SDV IVPUSH ONE (13:56)
[2024-12-14] MEDS: diphenhydrAMINE 50 MG/ML SDV IVPUSH ONE ×2 (13:59→18:57)
[2024-12-14] MEDS: Magnesium Sulfate 2 GM/50 mL 2 GM in Premix Bag 1 BAG IV ONE (13:59)
[2024-12-14] MEDS: LORazepam 2 MG/ML SDV IVPUSH ONE (14:15)
[2024-12-14] MEDS: HYDROmorphone 2 MG/ML SDV IVPUSH ONE ×2 (16:06→18:42)
[2024-12-14] MEDS: Sodium Chloride 0.9% 10 ML Syringe FLUSH PRN (18:44)
[2024-12-14 19:25] VITALS: BP 132/80; PULSE 82
== END 2024-12-14 19:45 | disposition home or self-care (01) ==
LOC: FB.ED 11:01
DX: G43.111 Migraine with aura, intractable, with status migrainosus (principal); G90.A Postural orthostatic tachycardia syndrome [POTS]; E66.9 Obesity, unspecified; Z88.5 Allergy status to narcotic agent; Z88.8 Allergy status to other drugs, medicaments and biological substances; Z91.048 Other nonmedicinal substance allergy status; Z79.899 Other long term (current) drug therapy; Z86.16 Personal history of COVID-19; Z90.49 Acquired absence of other specified parts of digestive tract; Z68.37 Body mass index [BMI] 37.0-37.9, adult
CPT/HCPCS: 36415; 80053; 83605; 85025; 86140; 96361; 96365; 96375; 96376; 99284; J1171; J1200; J1885; J2060; J2405; J3475; J7030

== ENCOUNTER 2024-12-15 16:23 | Emergency (ER) | payer MEDICAID ==
[2024-12-15 18:25] LABS: MEAN PLATELET VOLUME 9.0 fL (7.1-12.4); PLATELET COUNT,PLT 300 x10(3)uL (151-488); RED BLOOD CELL COUNT 4.82 x10(6)uL (3.60-5.20); RED CELL DISTRIBUTION WIDTH 13.8 % (12.3-16.5); WHITE BLOOD CELL COUNT,WBC 8.3 x10-3/uL (3.0-10.3)
[2024-12-15 18:31] LABS: BLOOD UREA NITROGEN,BUN 10 mg/dL (7-18); CARBON DIOXIDE,CO2 25 mmol/L (21-32); CHLORIDE,CL 106 mmol/L (100-110); CREATININE 0.8 mg/dL (0.55-1.02); EST CRCL DRUG DOSING (CG) 106.14 mL/min; ESTIMATED GFR 98 mL/min (>60); GLUCOSE RANDOM 94 mg/dL (80-116); POTASSIUM,K 4.4 mmol/L (3.5-5.3); SODIUM,NA 141 mmol/L (135-145)
[2024-12-15 18:37] LABS: ALANINE AMINOTRANSFERASE,ALT 12 U/L (12-36); ASPARTATE AMNIOTRANSFERASE,AST 16 IU/L (5-25); BILIRUBIN TOTAL 0.3 mg/dL (0.1-1.3); PROTEIN TOTAL,TP 7.1 g/dL (6.0-8.0)
[2024-12-15 18:39] LABS: A/G RATIO 0.7
[2024-12-15 18:56] LABS: SEG NEUTROPHILS PERCENT MAN 50 % (46-82)
[2024-12-15 18:57] LABS: BAND PERCENT MAN 3 % (0-6); EOSINOPHILS PERCENT MAN 1 % (0-5); LYMPHOCYTES PERCENT MAN 38 % (13-37); MONOCYTES PERCENT MAN 8 % (4-12)
[2024-12-15] MEDS: Ketorolac 30 MG/ML SDV IM ONE (19:14)
[2024-12-15 20:28] VITALS: BP 154/88; PULSE 112
[2024-12-15] MEDS: Ondansetron 4 MG Tab.DIS PO ONE (21:00)
== END 2024-12-15 21:10 | disposition home or self-care (01) ==
LOC: FB.ED 16:23
DX: R07.9 Chest pain, unspecified (principal); M50.30 Other cervical disc degeneration, unspecified cervical region; E66.9 Obesity, unspecified; K21.9 Gastro-esophageal reflux disease without esophagitis; M19.90 Unspecified osteoarthritis, unspecified site; Z79.899 Other long term (current) drug therapy; Z88.5 Allergy status to narcotic agent; Z88.8 Allergy status to other drugs, medicaments and biological substances; Z86.16 Personal history of COVID-19; Z90.49 Acquired absence of other specified parts of digestive tract; Z68.37 Body mass index [BMI] 37.0-37.9, adult
CPT/HCPCS: 36415; 80053; 83735; 84484; 85025; 93005; 93010; 96372; 99284; 99285; J1885; J3360; Q0162

== ENCOUNTER 2024-12-20 15:26 | Emergency (ER) | payer MEDICAID ==
[2024-12-20 15:49] VITALS: BP 138/89; PULSE 104
[2024-12-20] MEDS ORDERED: Sodium Chloride 0.9% 10 ML Syringe FLUSH PRN (16:12)
[2024-12-20] MEDS: Ketorolac 30 MG/ML SDV IVPUSH ONE (17:46)
[2024-12-20] MEDS: Ondansetron 4 MG/2 ML SDV IVPUSH ONE (17:46)
[2024-12-20] MEDS: diphenhydrAMINE 50 MG/ML SDV IVPUSH ONE (19:33)
== END 2024-12-20 20:25 | disposition home or self-care (01) ==
LOC: FB.ED 15:26
DX: G43.711 Chronic migraine without aura, intractable, with status migrainosus (principal); F41.9 Anxiety disorder, unspecified; G90.A Postural orthostatic tachycardia syndrome [POTS]; M62.830 Muscle spasm of back; J45.909 Unspecified asthma, uncomplicated; K21.9 Gastro-esophageal reflux disease without esophagitis; Z88.5 Allergy status to narcotic agent; Z88.8 Allergy status to other drugs, medicaments and biological substances; Z91.048 Other nonmedicinal substance allergy status; Z79.899 Other long term (current) drug therapy; Z86.16 Personal history of COVID-19; Z90.49 Acquired absence of other specified parts of digestive tract
CPT/HCPCS: 36410; 96361; 96374; 96375; 99284; 99284-25; A9270-GY; J1200; J1885; J2405; J3360; J7030

== ENCOUNTER 2025-01-29 06:50 | Emergency (ER) | payer MEDICAID ==
[2025-01-29] MEDS ORDERED: Sodium Chloride 0.9% 10 ML Syringe FLUSH PRN (07:30)
[2025-01-29 08:22] LABS: BASOPHILS ABSOLUTE AUTO 0.1 x10-3/uL (0.0-0.1); BASOPHILS PERCENT AUTO 0.8 % (0.2-1.5); EOSINOPHILS ABSOLUTE AUTO 0.1 x10-3/uL (0.0-0.8); EOSINOPHILS PERCENT AUTO 1.8 % (0.6-8.1); LYMPHOCYTES ABSOLUTE AUTO 3.0 x10-3/uL (1.0-4.4); LYMPHOCYTES PERCENT AUTO 46.4 % (18.4-52.1); MEAN PLATELET VOLUME 7.7 fL (7.1-12.4); MONOCYTES ABSOLUTE AUTO 0.6 x10-3/uL (0.3-1.0); MONOCYTES PERCENT AUTO 9.4 % (4.4-15.7); NEUTROPHILS ABSOLUTE AUTO 2.7 x10-3/uL (1.5-6.3); NEUTROPHILS PERCENT AUTO 41.6 % (30.8-76.2); PLATELET COUNT,PLT 350 x10(3)uL (151-488); RED BLOOD CELL COUNT 4.97 x10(6)uL (3.60-5.20); RED CELL DISTRIBUTION WIDTH 13.2 % (12.3-16.5); WHITE BLOOD CELL COUNT,WBC 6.5 x10-3/uL (3.0-10.3)
[2025-01-29 08:26] LABS: BLOOD UREA NITROGEN,BUN 16 mg/dL (7-18); CARBON DIOXIDE,CO2 26 mmol/L (21-32); CHLORIDE,CL 106 mmol/L (100-110); CREATININE 0.7 mg/dL (0.55-1.02); ESTIMATED GFR 115 mL/min (>60); GLUCOSE RANDOM 103 mg/dL (80-116); POTASSIUM,K 3.9 mmol/L (3.5-5.3); SODIUM,NA 139 mmol/L (135-145)
[2025-01-29 08:32] LABS: A/G RATIO 0.9; ALANINE AMINOTRANSFERASE,ALT 30 U/L (12-36); ASPARTATE AMNIOTRANSFERASE,AST 18 IU/L (5-25); BILIRUBIN TOTAL 0.2 mg/dL (0.1-1.3); PROTEIN TOTAL,TP 7.2 g/dL (6.0-8.0)
[2025-01-29 08:35] LABS: LACTIC ACID 1.2 mmol/L (0.4-2.0)
[2025-01-29] MEDS: diphenhydrAMINE 50 MG/ML SDV IM ONE (09:32)
[2025-01-29] MEDS: Prochlorperazine 10 MG/2 ML SDV IM ONE (09:34)
[2025-01-29] MEDS: Ketorolac 30 MG/ML SDV IM ONE ×2 (09:41→11:41)
[2025-01-29] MEDS: LORazepam 2 MG/ML SDV IM ONE (09:42)
[2025-01-29] MEDS: Ketorolac 30 MG/ML SDV IVPUSH ONE (09:57)
[2025-01-29] MEDS: diphenhydrAMINE 50 MG/ML SDV IVPUSH ONE (09:57)
[2025-01-29] MEDS: LORazepam 2 MG/ML SDV IVPUSH ONE (09:57)
[2025-01-29] MEDS: HYDROmorphone 2 MG/ML SDV IM ONE (15:00)
[2025-01-29 15:37] VITALS: BP 128/83; PULSE 88
== END 2025-01-29 15:45 | disposition home or self-care (01) ==
LOC: FB.ED 06:50
DX: S13.9XXA Sprain of joints and ligaments of unspecified parts of neck, initial encounter (principal); G43.511 Persistent migraine aura without cerebral infarction, intractable, with status migrainosus; E86.0 Dehydration; E66.9 Obesity, unspecified; K21.9 Gastro-esophageal reflux disease without esophagitis; M19.90 Unspecified osteoarthritis, unspecified site; Z79.899 Other long term (current) drug therapy; Z88.8 Allergy status to other drugs, medicaments and biological substances; Z88.5 Allergy status to narcotic agent; Z86.16 Personal history of COVID-19; Z90.49 Acquired absence of other specified parts of digestive tract
CPT/HCPCS: 36415; 80053; 83605; 83735; 85025; 96372; 99283; A9270; J0780; J1171; J1200; J1885; J2060; 99284

== ENCOUNTER 2025-02-15 13:25 | Emergency (ER) | payer MEDICAID ==
[2025-02-15] MEDS ORDERED: Sodium Chloride 0.9% 10 ML Syringe FLUSH PRN (13:42)
[2025-02-15] MEDS: Ketorolac 30 MG/ML SDV IM ONE (15:42)
[2025-02-15] MEDS: Ondansetron 4 MG/2 ML SDV IM ONE (15:45)
[2025-02-15] MEDS: diphenhydrAMINE 50 MG/ML SDV IM ONE (15:47)
[2025-02-15] MEDS: Ondansetron 4 MG/2 ML SDV IVPUSH ONE (15:55)
[2025-02-15] MEDS: Magnesium Sulf/Wat 4 GM/50 mL 4 GM in Premix Bag 1 BAG IV ONE (15:55)
[2025-02-15] MEDS: diphenhydrAMINE 50 MG/ML SDV IVPUSH ONE (15:55)
[2025-02-15] MEDS: Ketorolac 30 MG/ML SDV IVPUSH ONE (15:55)
[2025-02-15 16:12] LABS: BASOPHILS ABSOLUTE AUTO 0.1 x10-3/uL (0.0-0.1); BASOPHILS PERCENT AUTO 0.8 % (0.2-1.5); EOSINOPHILS ABSOLUTE AUTO 0.1 x10-3/uL (0.0-0.8); EOSINOPHILS PERCENT AUTO 1.9 % (0.6-8.1); LYMPHOCYTES ABSOLUTE AUTO 3.5 x10-3/uL (1.0-4.4); LYMPHOCYTES PERCENT AUTO 45.7 % (18.4-52.1); MEAN PLATELET VOLUME 7.7 fL (7.1-12.4); MONOCYTES ABSOLUTE AUTO 0.6 x10-3/uL (0.3-1.0); MONOCYTES PERCENT AUTO 7.9 % (4.4-15.7); NEUTROPHILS ABSOLUTE AUTO 3.3 x10-3/uL (1.5-6.3); NEUTROPHILS PERCENT AUTO 43.7 % (30.8-76.2); PLATELET COUNT,PLT 213 x10(3)uL (151-488); RED BLOOD CELL COUNT 4.82 x10(6)uL (3.60-5.20); RED CELL DISTRIBUTION WIDTH 13.3 % (12.3-16.5); WHITE BLOOD CELL COUNT,WBC 8.3 x10-3/uL (3.0-10.3)
[2025-02-15 16:15] LABS: BLOOD UREA NITROGEN,BUN 7 mg/dL (7-18); CARBON DIOXIDE,CO2 24 mmol/L (21-32); CHLORIDE,CL 105 mmol/L (100-110); CREATININE 0.6 mg/dL (0.55-1.02); EST CRCL DRUG DOSING (CG) 140.17 mL/min; ESTIMATED GFR 119 mL/min (>60); GLUCOSE RANDOM 80 mg/dL (80-116); POTASSIUM,K 4.0 mmol/L (3.5-5.3); SODIUM,NA 139 mmol/L (135-145)
[2025-02-15 16:21] LABS: A/G RATIO 0.9; ALANINE AMINOTRANSFERASE,ALT 28 U/L (12-36); ASPARTATE AMNIOTRANSFERASE,AST 21 IU/L (5-25); BILIRUBIN TOTAL 0.3 mg/dL (0.1-1.3); PROTEIN TOTAL,TP 7.1 g/dL (6.0-8.0)
[2025-02-15 17:22] VITALS: BP 138/94; PULSE 94
[2025-02-15 18:02] LABS: APPEARANCE,URINE CLEAR (CLEAR); GLUCOSE,URINE NORMAL (NORMAL); OCCULT BLOOD,URINE MODERATE (NEGATIVE)
[2025-02-15 18:09] LABS: SQUAMOUS EPITHELIAL CELLS,UR OCCASIONAL (NS,R,O)
== END 2025-02-15 17:08 | disposition home or self-care (01) ==
LOC: FB.ED 13:25
DX: G90.A Postural orthostatic tachycardia syndrome [POTS] (principal); K21.9 Gastro-esophageal reflux disease without esophagitis; E66.9 Obesity, unspecified; Z88.5 Allergy status to narcotic agent; Z88.8 Allergy status to other drugs, medicaments and biological substances; Z91.048 Other nonmedicinal substance allergy status; Z79.899 Other long term (current) drug therapy; Z90.49 Acquired absence of other specified parts of digestive tract; Z68.38 Body mass index [BMI] 38.0-38.9, adult
CPT/HCPCS: 36415; 80053; 81001; 83735; 85025; 96372; 99284; J1200; J1885; J2405

== ENCOUNTER 2025-02-19 18:42 | Emergency (ER) | payer MEDICAID ==
[2025-02-19] MEDS ORDERED: methylPREDNISolone Sodium Succinate 125 MG/2 ML SDV IVPUSH ONE (19:10)
[2025-02-19] MEDS ORDERED: diphenhydrAMINE 50 MG/ML SDV IVPUSH ONE (19:10)
[2025-02-19] MEDS ORDERED: Ondansetron 4 MG/2 ML SDV IVPUSH ONE (19:10)
[2025-02-19] MEDS ORDERED: Ketorolac 30 MG/ML SDV IVPUSH ONE (19:10)
[2025-02-19] MEDS: Ondansetron 4 MG Tab.DIS PO ONE (20:26)
[2025-02-19] MEDS: Ketorolac 30 MG/ML SDV IM ONE (20:27)
[2025-02-19] MEDS: diphenhydrAMINE 50 MG/ML SDV IM ONE (20:28)
[2025-02-19] MEDS: methylPREDNISolone Sodium Succinate 125 MG/2 ML SDV IM ONE (20:30)
[2025-02-19] MEDS: Magnesium Chloride 64 MG Tab.ER PO STA (21:22)
[2025-02-19 22:02] VITALS: BP 143/81; PULSE 94
== END 2025-02-19 22:02 | disposition home or self-care (01) ==
LOC: FB.ED 18:42
DX: G43.909 Migraine, unspecified, not intractable, without status migrainosus (principal); K21.9 Gastro-esophageal reflux disease without esophagitis; E66.9 Obesity, unspecified; Z88.5 Allergy status to narcotic agent; Z88.8 Allergy status to other drugs, medicaments and biological substances; Z91.048 Other nonmedicinal substance allergy status; Z79.899 Other long term (current) drug therapy; Z86.16 Personal history of COVID-19; Z90.49 Acquired absence of other specified parts of digestive tract
CPT/HCPCS: 96372; 99283; A9270; J1200; J1885; J2919; Q0162